=== PATIENT | male | born 1970 | race Caucasian/White ===

== ENCOUNTER 2019-12-15 08:25 | Emergency (ER) | payer SELFPAY ==
[~2019-12-15] VITALS: Ht 187 cm; Wt 70.1 kg
[~2019-12-15 08:25] MED LIST: CEPH500C PO; SULF1TAB38 PO; TRAM50TA2 PO
--- OUTSIDE RECORDS SUMMARY | 2019-12-15 08:30 | XMS REPORT ---
Author Author Marco HARDEN Organization [facility] Address [address] [place] [address] Care Team Providers Care Medical Doctor Name Role Phone MAMTA HARDEN Unavailable PROBLEMS Type Condition ICD9-CM Code [id number] Code Onset Dates Condition S tatus SNOMED Code Problem Pain in joint, upper arm 719.42 Activ e 972335666 Problem Lumbago 724.2 Active 535746508 Problem Impacted cerumen 380.4 Active 180 83018 Problem Anxiety F41.9 Active 23940231 Problem Loss of weight 783.21 Active 83419 5001 Problem Low back pain M54.5 Active 784902 007 Problem Psychosexual dysfunction with inhibited sexual excitement 302.72 Active [id number] Problem Unspecified episodic mood disorder 296.90 Active 642731318 Problem Mood disorder F39 Active 230114 05 Problem Other chronic pain G89.29 Active 8 [id number] ALLERGIES No Information ENCOUNTERS Encounter Location Date Diagnosis [address] [place], [place] [id number] 57 Feb, Mood disorder F39 and Low back pain M54.[address] [id number] December, Mood disorder F39 [address] [place], [place] [id number] 57 December, Mood disorder F39 and Weight loss R63.4 [facility] [address] [facility] [id number] [address] [place] [phone] Nov, Mood disorder F39 and Low ba ck pain M54.5 [facility] [address] [facility] [id number] [address] [place] [phone] Aug, Anxiety F41.9 [facility] [address] [facility] [id number] [address] [place] [phone] Aug, Anxiety F41.9 [address] [place], [place] [id number] 57 Jul, Anxiety F41.9 ; Low back pain M54.5 ; Other chronic pain G89.29 and Gum abscess K05.219 [facility] [address] [id number] [address] [place] [phone] 17 May, 2017 [facility] [address] [place], [place] [id number] 57 May, Bronchitis J40 and Mood disorder F39 [facility] [address] [place], [place] [id number] 57 Feb, Mood disorder F39 [facility] [address] [id number] [address] [place] [phone] Nov, [facility] [address] [id number] [address] [place] [phone] Nov, [facility] [address] [facility] [id number] [address] [place] [phone] Oct, [facility] [address] [id number] [address] [place] [phone] Oct, [facility] [address] [id number] [address] [place] [phone] Oct, [facility] [address] [id number] [address] [place] [phone] Oct, [facility] [address] [place], [place] [id number] 57 Oct, [facility] [address] [id number] [address] [place] [phone] Oct, [facility] [address] [id number] [address] [place] [phone] Sep, [facility] [address] [id number] [address] [place] [phone] Sep, [facility] [address] [id number] [address] [place] [phone] Apr, [facility] [address] [id number] [address] [place] [phone] Apr, [facility] [address] [id number] [address] [place] [phone] Mar, [facility] [address] [id number] [address] [place] [phone] Mar, [facility] [address] [id number] [address] [place] [phone] Jun, [facility] [address] [id number] [address] [place] [phone] Jun, [facility] [address] [place] [id number] 57 Apr, [facility] [address] [id number] [address] [place] [phone] December, [facility] [address] [id number] [address] [place] [phone] Nov, [facility] [address] [id number] [address] [place] [phone] Oct, [facility] [address] [id number] [address] [place] [phone] Oct, [facility] [address] [id number] [address] [place] [phone] Oct, [facility] [address] [id number] [address] [place] [phone] Oct, [facility] [address] [id number] [address] [place] [phone] Oct, IMMUNIZATIONS No Known Immunizations SOCIAL HISTORY Never Assessed REASON FOR VISIT PLAN OF CARE VITAL SIGNS Height 74 in 2014-05-01 Weight 139.8 lbs 2014-05-01 Temperature 97.1 degrees Fahrenheit 2014-05-01 Heart Rate 84 bpm 2014-05-01 Respiratory Rate 18 2014-05-01 Blood pressure systolic 128 mmHg 2014-05-01 Blood pressure diastolic 74 mmHg 2014-05-01 MEDICATIONS Unknown Medications RESULTS No Results PROCEDURES Procedure Date Ordered Result Body Site EAR IRRIGATION May 01, 2014 INSTRUCTIONS MEDICATIONS ADMINISTERED No Known Medications
--- OUTSIDE RECORDS SUMMARY | 2019-12-15 08:30 | XMS REPORT ---
Author Author Hail V[facility]ity Organization [facility] Address [address] [address] Care Team Providers Care Ethylbenzene Converter Helper Name Role Phone JESSICA, [facility] Unavailable MAMTA HARDEN Unavailable MAMTA HARDEN Unavailable MAMTA HARDEN Unavailable MAMTA HARDEN Unavailable MAMTA HARDEN Unavailable MAMTA HARDEN Unavailable MAMTA HARDEN Unavailable Migration, Doctor Unavailable Unavailable Migration, Doctor Unavailable Unavailable MAMTA HARDEN Unavailable MAMTA HARDEN Unavailable MAMTA HARDEN Unavailable MAMTA HARDEN Unavailable FINA MAMTA Unavailable FINA MAMTA Unavailable Allergies The data below is from unstructured sources Allergen Type Severity Reaction Status Last Updated No Known Drug Allergies Active 06/28/12 No Information Medications Medication Ingredient Drug Dose Dates Status Sig Sig Care Class(es) (Normalized) (Original) Provid er amitriptyli Amitriptyli Tricyclic 50 mg 11-06-19 Active take 1 amitriptylin no ne ne Antidepress 15 tablet by e 50 mg take name hydrochlori Translation ant mouth once 1 tablet (50 (no de 50 mg s: [ daily at mg) by oral phone) oral tablet amitriptyli bedtime route once (1 source.) ne 50 mg] daily at bedtime Oct, Active amoxicillin amoxicillin Penicillin- 1000 08-23-20 Active no Amoxicillin no 500 mg oral Translation class mg 17 - information 500 mg name capsule (1 s: [ Antibacteri 09-02-19 Orally 2 (no source.) Amoxicillin al 18 times a day phone) 500 mg] 2 capsules 12h Jul, Aug, 10 day(s) Active no carbamide no 3 08-27-20 Active no Debrox 6.5 % no information peroxide information drop(s 14 information 3 drop by name (1 source.) ) Otic route 2 (no times per phone) day for 5 day(s) Mar, Active diphenhydrA diphenhydrA Histamine-1 25 mg 06-14-20 Active no Benadryl 25 no MINE MINE Receptor 17 information MG Orally name tannate 25 Antagonist every 8 hrs (no mg chewable 1 capsule as phone) tablet (2 needed 8h 17 sources.) May, 2017 Active ibuprofen ibuprofen Nonsteroida 800 mg 06-07-20 Active no Ib uprofen no 800 mg oral Translation l 17 information 800 MG name tablet (2 s: [ Anti-inflam Orally Three (no sources.) Ibuprofen matory Drug times a day phone) 800 MG] as needed 1 tablet with food or milk May, 30 day(s) Active permethrin permethrin Pyrethroid 50 06-14-20 Active no E limite 5 % no 50 mg/ml Translation mg/mL 17 - information Externally name topical s: [ 06-21-20 Once a day 1 (no cream (1 Elimite 5 17 application phone) source.) %] to affected area 24h May, May, 7 day(s) Active predniSONE predniSONE no 20 mg 11-15-19 Active take 1 Predn iSONE no 20 mg oral Translation information 13 tablet by 20 mg 1 name tablet (1 s: [ mouth twice tablet by (no source.) PredniSONE daily Oral route 2 phone) 20 mg] times per day for 5 day(s) Oct, Active QUEtiapine QUEtiapine Atypical 400 mg 08-23-20 Active no Ser oquel 400 no 400 mg oral Translation Antipsychot 17 information MG Ora lly name tablet (5 s: [ ic twice a day (no sources.) Seroquel 1 tablet 12h phone) 100 mg, Jul, quetiapine 30 day(s) 200 MG Oral Active Tablet [Seroquel], Seroquel 200 MG, quetiapine 300 MG Oral Tablet [Seroquel], Seroquel 300 MG, quetiapine 400 MG Oral Tablet [Seroquel], Seroquel 400 MG] 300 mg 08-23-2017 Active no Seroquel no name inform 300 MG (no ation Orally phone) twice a day 1 tablet Jul, 30 day(s) Active 200 mg 08-23-2017 Active no Seroquel no name inform 200 MG (no ation Orally phone) twice a day 1 tablet Jul, 30 day(s) Active 100 mg 08-23-2017 Active no Seroquel no name inform 100 mg (no ation Orally phone) twice a day 1 tablet Jul, 30 day(s) Active Problems Problem Normalized Date of Normalized Normalized Provider Fac ility Classification Problem(s) Problem Problem Problem Sta tus Onset/Resoluti Duration on Other Abnormal Episodic Active [facility] nutritional; weight loss [id number] [place] [address] endocrine; and Translations: of [facility] metabolic [ - Weight [place] ([address]) disorders (20 loss R63.4, sources.) Loss of weight, Loss of weight] Mood disorders Affective Chronic Active [facility] unity (20 sources.) psychosis [id number] [place] [address] Center Translations: of [facility] [ Unspecified [place] ([address]) episodic mood disorder, - Mood disorder F39, Mood disorder, Mood disorder] Unclassified 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 [facility] (15 sources.) periodontitis, [id number] [place], [place] [address]e r localized, of [place] unspecified [place] ([address]) severity Translations: [ - Gum abscess K05.219] Anxiety Anxiety Chronic Active [facility] disorders (20 Translations: [address] [facility] sources.) [ Anxiety, - of [facility] Anxiety F41.9] [place] ([address]) Other Arthralgia of Episodic Active [facility] non-traumatic the upper arm [address] [place] [address] Center joint Translations: of [facility] disorders (15 [ Pain in [place] ([address]) sources.) joint, upper arm] Chronic Bronchitis, Episodic Active MAMTA FINA [facility] ty obstructive not specified [address] [place] [address] pulmonary as acute or of [facility] disease and chronic [place] ([address]) bronchiectasis Translations: (15 sources.) [ - Bronchitis J40] Residual Chronic pain Chronic Active [facility] codes; Translations: Migration [facility] unclassified [ Other of [place] (8 sources.) chronic pain] [place] ([address]) Other ear and Impacted Episodic Active [facility] ity sense organ cerumen [id number] [place] [address] disorders (15 Translations: of [place] sources.) [ Impacted [place] ([address]) cerumen] Spondylosis; Low back pain Episodic Active [facility] inter[facility]bral Translations: [address] [facility] disc [ - Low back of [facility] disorders; pain M54.5, [place] ([address]) other back Lumbago, problems (20 Lumbago, Low sources.) back pain] Other nervous Other chronic Chronic Active MAMTA Weinstein [facility] [address] [facility] disorders (20 Translations: of [facility] sources.) [ - Other [place] ([address]) chronic pain G89.29, Other chronic pain, Other chronic pain] Unclassified Psychosexual Chronic Active MAMTA HARDEN Com [facility]unity (15 sources.) dysfunction [address] [facility] with inhibited of [facility] sexual [place] ([address]) excitement Translations: [ Psychosexual dysfunction with inhibited sexual excitement] Other Weight Episodic Active [facility] nutritional; decreased Migration [facility] endocrine; and Translations: of [facility] metabolic [ Loss of [place] ([address]) disorders (8 weight] sources.) Procedures Procedure Normalized Procedure Procedure Result Performer Facility Date 10-29-2014 Assay of thyroid no information no name (no phone) [facility] stimulating hormone [facility] ([id number]) 10-29-2014 Blood count complete no information no name (no jose ne) [facility] auto&auto difrntl wbc [facility] (12395) 10-29-2014 Collection venous no information no name (no phone) [facility] blood venipuncture [facility] (88158) 10-29-2014 Comprehensive no information no name (no phone) [facility] (86646) 10-29-2014 Hemoglobin no information no name (no phone) [facility] glycosylated a1c [facility] (22664) 05-01-2014 Removal impacted no information no name (no phone) [facility] cerumen [facility] instrumentation unilat [place] ([address]) Immunizations The data below is from unstructured sources No Known Immunizations No Known Immunizations No Known Immunizations No Known Immunizations No Known Immunizations No Known Immunizations No Known Immunizations No Known Immunizations No Known Immunizations No Known Immunizations No Known Immunizations No Known Immunizations No Known Immunizations No Known Immunizations No Known Immunizations No Known Immunizations No Known Immunizations Results The data below is from unstructured sources No Results No Results No Results No Results No Results No Results No Results No Results No Results No Results No Results No Results No Results No Results No Results No Results No Results Vital Signs Vital Sign Value Interpretation Reference Date Time Care Prov ider Facility (Normalized) (Normalized) Range BMI (Body Mass 19.51 kg/m2 (no code) 15 - 25 kg/m2 [facility]-10-2018 [facility] 11:20-0400 65591 [facility] (64143) BMI (Body Mass 19.9 kg/m2 (no code) 15 - 25 kg/m2 12-27-2017 [facility] Index) 10:20-0400 41557 [facility] (62508) BMI (Body Mass 18.23 kg/m2 (no code) 15 - 25 kg/m2 08-23-2017 [facility] Index) 09:20-0500 92010 [facility] (20128) Body 97.1 [degF] (no code) 97.8 - 99.0 10-29-2014 [facility] Temperature [degF] 09:37-[address] [place] [address] (850[address]) Body 97.1 [degF] (no code) 97.8 - 99.0 05-01-2014 [facility] Temperature [degF] 16:47-[address] [place] [address] (95[address]) Body weight 64.41 kg (no code) kg 10-29-2014 [facility] 09:37-[address] [place] [address] (18667) Body weight 63.41 kg (no code) kg 05-01-2014 [facility] 16:47-[address] [place] [address] ([address]23) Body weight 61.78 kg (no code) kg 04-24-2014 [facility] 18:41-[address] [place] [address] ([address]) Height 187.96 cm (no code) cm 01-10-2018 MAMTA [facility] ommunity 11:20-[address] [place] [address] ([id number]) Height 187.96 cm (no code) cm 12-27-2017 MAMTA Weinstein [facility] 10:200400 99411 [facility] (92151) Height 187.96 cm (no code) cm 08-23-2017 MAMTA Weinstein [facility] 09:20-0500 50816 [facility] (32322) Height 187.96 cm (no code) cm 10-29-2014 MAMTA Weinstein [facility] 09:37-[address] [place] [address] (35946) Height 187.96 cm (no code) cm 05-01-2014 MAMTA Weinstein [facility] 16:47-[address] [place] [address] (35143) Height 187.96 cm (no code) cm 04-24-2014 MAMTA Weinstein [facility] 18:41-[address] [place] [address] ([address]) Weight 68.95 kg (no code) kg 01-10-2018 MAMTA Forbes [facility] 11:200400 [address] [place] [address] (66474) Weight 70.31 kg (no code) kg 12-27-2017 MAMTA Forbes [facility] 10:20-[address] [place] [address] (94[address]) Weight 64.41 kg (no code) kg 08-23-2017 MAMTA Forbes [facility] 09:200500 [address] [place] [address] ([address]) Interventions No Information Plan of Treatment The data below is from unstructured sourcesNo plan of care. Goals No Information Social History No Information Functional Status The data below is from unstructured sourcesNo functional status results. Mental Status No Information Encounters Encounter Normalized Encounter Encounter Diagnosis Care Provi jessa Organization Date Type 12-20-2017 [facility] Unspecified mood MAMTA HARDEN (no [facility] - [affective] disorder phone) (no phone ) 12-20-2017 - 12-20-2017 09-13-2017 [facility] Anxiety disorder, MAMTA Russell (no [facility] - unspecified phone) (no phone) 09-13-2017 - 09-13-2017 08-30-2017 [facility] Anxiety disorder, MAMTA Russell (no [facility] - unspecified phone) (no phone) 08-30-2017 - 08-30-2017 06-14-2017 [facility] no information MAMTA HARDEN ( no [facility] - phone) (no phone) 06-14-2017 - 06-14-2017 12-10-2014 [facility] no information Doctor Migrati on (no [facility] - phone) (no phone) 12-10-2014 - 12-10-2014 12-09-2014 [facility] no information Doctor Migrati on (no [facility] - phone) (no phone) 12-09-2014 - 12-09-2014 11-12-2014 [facility] no information MAMTA HARDEN ( no [facility] - phone) Doctor (no phone) 11-12-2014 [facility] (no phone) - MAMTA HARDEN (no 11-12-2014 phone) Doctor Migration (no phone) 11-05-2014 [facility] no information MAMTA HARDEN ( no [facility] - phone) Doctor (no phone) 11-05-2014 [facility] (no phone) - MAMTA HARDEN (no 11-05-2014 phone) Doctor Migration (no phone) 10-22-2014 [facility] no information MAMTA HARDEN ( no [facility] - phone) Doctor (no phone) 10-22-2014 [facility] (no phone) - MAMTA HARDEN (no 10-22-2014 phone) Doctor Migration (no phone) 05-01-2014 [facility] no information MAMTA HARDEN ( no [facility] - phone) Doctor (no phone) 05-01-2014 [facility] (no phone) - MAMTA HARDEN (no 05-01-2014 phone) Doctor Migration (no phone) 04-24-2014 [facility] no information MAMTA HARDEN ( no [facility] - phone) Doctor (no phone) 04-24-2014 Migration (no phone) - MAMTA HARDEN (no 04-24-2014 phone) Doctor Migration (no phone) 07-17-2013 [facility] no information MAMTA HARDEN ( no [facility] - phone) Doctor (no phone) 07-17-2013 Migration (no phone) - MAMTA HARDEN (no 07-17-2013 phone) Doctor Migration (no phone) 12-29-2012 [facility] no information MAMTA HARDEN ( no [facility] - phone) (no phone) 12-29-2012 - 12-29-2012 12-12-2012 [facility] no information MAMTA HARDEN ( no [facility] - phone) (no phone) 12-12-2012 - 12-12-2012 11-22-2012 [facility] no information MAMTA HARDEN ( no [facility] - phone) (no phone) 11-22-2012 - 11-22-201211-20-2012 [facility] no information Doctor Migrati on (no [facility] - phone) (no phone) 11-20-2012 - 11-20-2012 11-15-2012 [facility] no information MAMTA HARDEN ( no [facility] - phone) (no phone) 11-15-2012 - 11-15-2012 11-14-2012 [facility] no information MAMTA HARDEN ( no [facility] - phone) (no phone) 11-14-2012 - 11-14-2012 03-27-2019 [facility] Unspecified mood MAMTA HARDEN (no [facility] - Corrections [affective] disorder phone) Corre ctions (no phone) 03-27-2019 - 03-27-2019 01-10-2018 [facility] Unspecified mood MAMTA HARDEN (no [facility] - Corrections [affective] disorder phone) Corre ctions (no phone) 01-10-2018 - 01-10-2018 12-27-2017 [facility] Unspecified mood MAMTA HARDEN (no [facility]rections [affective] disorder phone) Corre ctions (no phone) 12-27-2017 - 12-27-2017 08-23-2017 [facility] Anxiety disorder, MAMTA HARDEN (no [facility] unspecified phone) Corrections (n o phone) 08-23-2017 - 08-23-2017 06-07-2017 [facility] Bronchitis, not MAMTA HARDEN (no [facility] Corrections specified as acute or phone) Garima ections (no phone) 06-07-2017 chronic - 06-07-2017 03-08-2017 [facility] Unspecified mood MAMTA HARDEN (no [facility] Corrections [affective] disorder phone) Corre ctions (no phone) 03-08-2017 - 03-08-2017 10-29-2014 [facility] no information MAMTA HARDEN (no [facility]rections phone) Doctor Corrections (no phone) 10-29-2014 Migration (no phone) - MAMTA HARDEN (no 10-29-2014 phone) Doctor Migration (no phone) 05-22-2013 [facility] no information MAMTA HARDEN (no [facility]rections phone) Corrections (no phone) 05-22-2013 - 05-22-2013 Medical Equipment No Information Payers No Information Advance Directives Directive Response Recor ded Date/Time Advance Directives No 8:32pm Resuscitation Status Full Code 03/05/14 8:32pm Discharge Instructions No hospital discharge instructions. Additional Source Comments This clinical document has been generated using GI Track software that has been certified by the Office of the National Coordinator for Health Information Technology (ONC 15.99.04.3023.Diam.31.00.0.228457) and the National Committee for Mirror Machine Feeder (NCQA, as an eMeasure certified technology). FOR RECORDS PERTAINING TO PATIENTS WHO ARE OR HAVE BEEN ENROLLED IN A CHEMICAL D EPENDENCY/SUBSTANCE ABUSE PROGRAM, SOME INFORMATION MAY BE OMITTED. This clinica l summary was aggregated from multiple sources. Caution should be exercised in using it in the provision of clinical care. This summary normalizes information from multiple sources, and as a consequence, information in this document may ma terially change the coding, format and clinical context of patient data. In jose carlos tion, data may be omitted in some cases. CLINICAL DECISIONS SHOULD BE BASED ON T HE PRIMARY CLINICAL RECORDS. [employer]. provides no warranty or guara ntee of the accuracy or completeness of information in this document.The followi ng information is based on time limited clinical information UNRECOGNIZED CONTENT PROVIDED BELOW FOR UNRECOGNIZED SECTION REASON FOR VISIT [id number]
--- OUTSIDE RECORDS SUMMARY | 2019-12-15 08:30 | XMS REPORT ---
Author Author Marco HARDEN Organization [facility] Address [address] [place] [address] Care Team Providers Care Manager Spring Name Role Phone MAMTA HARDEN Unavailable PROBLEMS Type Condition ICD9-CM Code [id number] Code Onset Dates Condition S tatus SNOMED Code Problem Pain in joint, upper arm 719.42 Activ e 176251542 Problem Lumbago 724.2 Active 732536589 Problem Impacted cerumen 380.4 Active 180 47668 Problem Anxiety F41.9 Active 03312558 Problem Loss of weight 783.21 Active 93208 5001 Problem Low back pain M54.5 Active 793728 007 Problem Psychosexual dysfunction with inhibited sexual excitement 302.72 Active 333039569828387 Problem Unspecified episodic mood disorder 296.90 Active 151756241 Problem Mood disorder F39 Active 235545 05 Problem Other chronic pain G89.29 Active 8 9133086 ALLERGIES No Information ENCOUNTERS Encounter Location Date Diagnosis [place] [place], [place] [id number] 57 Feb, Mood disorder F39 and Low back pain M54.[address] [id number] 57 December, Mood disorder F39 [place] [place], [place] [id number] 57 December, Mood disorder F39 and Weight loss R63.4 [facility] [address] [facility] [id number] [address] [place] [phone] Nov, Mood disorder F39 and Low ba ck pain M54.5 [facility] [address] [facility] [id number] [address] [place] [phone] Aug, Anxiety F[address].9 [facility] [address] [facility] [id number] [address] [place] [phone] Aug, Anxiety F41.9 [place] [address] [place], [place] [id number] 57 Jul, Anxiety F41.9 ; Low back pain M54.5 ; Other chronic pain G89.29 [address]05.219 [facility] [address] [id number] [address] [place] [phone] 17 May, 2017 [facility] [address] [place], [place] [id number] 57 May, Bronchitis J40 and Mood disorder F39 [facility] [address] [place], [place] [id number] 57 Feb, Mood disorder F39 [facility] [address] [id number] [address] [place] [phone] Nov, [facility] [address] [id number] [address] [place] [phone] Nov, [facility] [address] [facility] [id number] [address] [place] [phone] Oct, [facility] [address] [id number] [address] [place] [phone] Oct, [facility] [address] [id number] [address] [place] [phone] Oct, [facility] [address] [id number] [address] [place] [phone] Oct, [facility] [address] [place], [place] [id number] 57 Oct, [facility] [address] [id number] [address] [place] [phone] Oct, [facility] [address] [id number] [address] [place] [phone] Sep, [facility] [address] [id number] [address] [place] [phone] Sep, [facility] [address] [id number] [address] [place] [phone] Apr, [facility] [address] [id number] [address] [place] [phone] Apr, [facility] [address] [id number] [address] [place] [phone] Mar, [facility] [address] [id number] [address] [place] [phone] Mar, [facility] [address] [id number] [address] [place] [phone] Jun, [facility] [address] [id number] [address] [place] [phone] Jun, [facility] [address] [place] [id number] 57 Apr, [facility] [address] [id number] [address] [place] [phone] December, [facility] [address] [id number] [address] [place] [phone] Nov, [facility] [address] [id number] [address] [place] [phone] Oct, [facility] [address] [id number] [address] [place] [phone] Oct, [facility] [address] [id number] [address] [place] [phone] Oct, [facility] [address] [id number] [address] [place] [phone] Oct, [facility] [address] [id number] [address] [place] [phone] Oct, IMMUNIZATIONS No Known Immunizations SOCIAL HISTORY Never Assessed REASON FOR VISIT PLAN OF CARE VITAL SIGNS Height 74 in 2014-04-24 Weight 136.2 lbs 2014-04-24 Heart Rate 84 bpm 2014-04-24 Respiratory Rate 16 2014-04-24 Blood pressure systolic 134 mmHg 2014-04-24 Blood pressure diastolic 88 mmHg 2014-04-24 MEDICATIONS Unknown Medications RESULTS No Results PROCEDURES No Known procedures INSTRUCTIONS MEDICATIONS ADMINISTERED No Known Medications
--- OUTSIDE RECORDS SUMMARY | 2019-12-15 08:30 | XMS REPORT | Encounter Summary ---
Author Author [facility] Address Unknown Phone Unavailable Care Team Providers Care Steel Pourer Name Role Phone PCP Unavailable Encounter Details Care Team Description Date Type Department Braden Nunn MD [address] [place] [address] [phone] Emergency, PhysicianMD Other acute pain 03/05/2010 [facility] al Encounter [address] [place] [address] Social History Date Tobacco Use Types Packs/Day Years Used Never Assessed Sex Assigned at Date Recorded Not on file Industry Job Start Date Occupation Not on file Not on file Not on file Travel End Travel History Travel Start No recent travel history available. documented as of this encounter Plan of Treatment Not on filedocumented as of this encounter Visit Diagnoses Diagnosis Other acute pain documented in this encounter
--- OUTSIDE RECORDS SUMMARY | 2019-12-15 08:30 | XMS REPORT | Clinical Summary ---
Author Author [facility] Organization [facility] Address Unknown Phone Unavailable Care Team Providers Care Process Artist Name Role Phone PCP Unavailable Allergies Not on File Medications Not on file Active Problems Not on file Social History Date Tobacco Use Types Packs/Day Years Used Never Assessed Sex Assigned at Date Recorded Not on file Industry Job Start Date Occupation Not on file Not on file Not on file Travel End Travel History Travel Start No recent travel history available. Last Filed Vital Signs Not on file Plan of Treatment Not on file Results Not on filefrom Last 3 Months
--- OUTSIDE RECORDS SUMMARY | 2019-12-15 08:30 | XMS REPORT ---
Author Author Marco HARDEN Organization [facility] Address [address] [place] [address] Care Team Providers Care Senior Media Planner Name Role Phone MAMTA HARDEN Unavailable PROBLEMS Type Condition ICD9-CM Code [id number] Code Onset Dates Condition S tatus SNOMED Code Problem Loss of weight 783.21 Active 76545 5001 Problem Pain in joint, upper arm 719.42 Activ e 059358788 Problem Lumbago 724.2 Active 619096840 Problem Anxiety F41.9 Active 30806617 Problem Other chronic pain G89.29 Active 8 3695398 Problem Impacted cerumen 380.4 Active 180 71150 Problem Psychosexual dysfunction with inhibited sexual excitement 302.72 Active 605871839698136 Problem Unspecified episodic mood disorder 296.90 Active 518805967 Problem Mood disorder F39 Active 806585 05 ALLERGIES No Information ENCOUNTERS Encounter Location Date Diagnosis [address] [place], [place] [id number] 57 December, Mood disorder F39 [address] [place], [place] [id number] 57 December, Mood disorder F39 and Weight loss R63.4 [place] [address] [facility] [id number] [address] [place] [place] [phone] Nov, Mood disorder F39 and Low ba ck pain M54.5 [place] [address] [facility] [id number] [address] [place] [phone] Aug, Anxiety F41.9 [place] [address] [facility] [id number] [address] [place] [address] Aug, Anxiety F41.9 [address] [place], [place] [id number] 57 Jul, Anxiety F41.9 ; Low back pain M54.5 ; Other chronic pain G89.29 and Gum abscess K05.219 [place] [address] [id number] [address] [place] [phone] 17 May, 2017 [facility] [address] [place] [id number] 57 10 May, 2017 Bronchitis J40 and Mood disorder F39 [facility] [address] [place] [id number] 57 11 Feb, 2017 Mood disorder F39 [facility] [address] [id number] [address] [place] [phone] 14 Nov, 2014 [facility] [address] [id number] [address] [place] [phone] Nov, [facility] [address] [id number] [address] [place] [phone] Oct, [facility] [address] [id number] [address] [place] [phone] Oct, [facility] [address] [id number] [address] [place] [phone] Oct, [facility] [address] [id number] [address] [place] [phone] Oct, [facility] [address] [place] [id number] 57 Oct, [facility] [address] [id number] [address] [place] [phone] Oct, [facility] [address] [id number] [address] [place] [phone] Sep, [facility] [address] [id number] [address] [place] [phone] Sep, [facility] [address] [id number] [address] [place] [phone] Apr, [facility] [address] [id number] [address] [place] [phone] Apr, [facility] [address] [id number] [address] [place] [phone] Mar, [facility] [address] [id number] [address] [place] [phone] Mar, [facility] [address] [id number] [address] [place] [phone] Jun, [facility] [address] [id number] [address] [place] [phone] Jun, [facility] [address] [place] [id number] 57 Apr, [facility] [address] [id number] [address] [place] [phone] December, [facility] [address] [id number] [address] [place] [phone] Nov, [facility] [address] [id number] [address] [place] [phone] Oct, [facility] [address] [facility] [id number] [address] [place] [phone] Oct, [facility] [address] [id number] [address] [place] [phone] Oct, [facility] [address] [id number] [address] [place] [phone] Oct, [facility] [address] [facility] [id number] [address] [place] [phone] Oct, IMMUNIZATIONS No Known Immunizations SOCIAL HISTORY Never Assessed REASON FOR VISIT PLAN OF CARE VITAL SIGNS MEDICATIONS Unknown Medications RESULTS No Results PROCEDURES No Known procedures INSTRUCTIONS MEDICATIONS ADMINISTERED No Known Medications
--- OUTSIDE RECORDS SUMMARY | 2019-12-15 08:30 | XMS REPORT | Clinical Summary ---
Author Author [facility] Organization [facility] Address Unknown Phone Unavailable Care Team Providers Care Wool Buyer Name Role Phone Self, Referral PCP Unavailable Winter Perez RN Unavailable Unavailable Source Comments Some departments are not documenting in the electronic medical record. If you d o not see the information that you expected, contact Release of Information in [facility] Information Management department at [phone] for further assistan ce in locating additional records.[facility] Allergies No Known Allergies Medications End Date Status Medication Sig Dispensed Refills Start Date Active amoxicillin (AMOXIL) 500 Take 1 Cap by 30 Cap 0 201 mg PO capsule mouth Three 0 Times Daily. Active naproxen (NAPROSYN) 500 Take 1 Tab by 30 Tab 0 201 mg PO tablet mouth Twice 0 Daily With Meals. Active Problems Not on file Social History Date Tobacco Use Types Packs/Day Years Used Current Every Day Smoker Drinks/Week oz/Week Comments Alcohol Use Yes Sex Assigned at Date Recorded Not on file Industry Job Start Date Occupation Not on file Not on file Not on file Travel End Travel History Travel Start No recent travel history available. Last Filed Vital Signs Reading Time Taken Comments Vital Sign 108/60 04/26/2010 1:49 PM CDT Blood Pressure 119 04/26/2010 1:49 PM CDT Pulse 36.4 C (97.5 F) 04/26/2010 1:49 PM CDT Temperature - - Respiratory Rate 98% 04/26/2010 1:49 PM CDT Oxygen Saturation - - Inhaled Oxygen Concentration - - Weight - - Height - - Body Mass Index Plan of Treatment Health Maintenance Due Date Last Done Comments DTAP/TDAP VACCINES (1 - 1982 Tdap) HIV SCREENING 1986 HEPATITIS C SCREENING 1989 PHYSICAL (COMPREHENSIVE) 1989 EXAM INFLUENZA VACCINE 03/29/2020 Results Not on filefrom Last 3 Months
--- OUTSIDE RECORDS SUMMARY | 2019-12-15 08:31 | XMS REPORT ---
Author Author Marco Vaughan Doctor Organization [facility] Address Unknown Phone Unavailable Care Team Providers Care Inspector Shells Name Role Phone Migration, Doctor Unavailable Unavailable PROBLEMS Type Condition ICD9-CM Code [id number] Code Onset Dates Condition S tatus SNOMED Code Problem Loss of weight 783.21 Active 49531 5001 Problem Pain in joint, upper arm 719.42 Activ e 875625638 Problem Lumbago 724.2 Active 337228796 Problem Anxiety F41.9 Active 80486410 Problem Other chronic pain G89.29 Active 8 2583021 Problem Impacted cerumen 380.4 Active 180 59330 Problem Psychosexual dysfunction with inhibited sexual excitement 302.72 Active 370631796884495 Problem Unspecified episodic mood disorder 296.90 Active 098111750 Problem Mood disorder F39 Active 751068 05 ALLERGIES No Information ENCOUNTERS Encounter Location Date Diagnosis [address] [id number] December, Mood disorder F39 [address] [id number] 57 December, Mood disorder F39 and Weight loss R63.4 [place] [address] [facility] [id number] [address] [place] [phone] Nov, Mood disorder F39 and Low ba ck pain M54.5 [facility] [address] [facility] [id number] [address] [place] [phone] Aug, Anxiety F41.9 [facility] [address] [facility] [id number] [address] [place] [phone] Aug, Anxiety F41.[address] [id number] 57 Jul, Anxiety F41.9 ; Low back pain M54.5 ; Other chronic pain G89.29 and Gum abscess K05.219 [facility] [address] [facility] [id number] [address] [place] [phone] May, [place] [address] [place] [id number] 57 10 May, 2017 Bronchitis J40 and Mood disorder F39 [facility] [address], [place] [id number] 57 11 Feb, 2017 Mood disorder F39 [facility] [address] [id number] [address] [place] [phone] 14 Nov, 2014 [facility] [address] [id number] [address] [place] [phone] Nov, [facility] [address] [id number] [address] [place] [phone] Oct, [facility] [address] [id number] [address] [place] [phone] Oct, [facility] [address] [id number] [address] [place] [phone] Oct, [facility] [address] [id number] [address] [place] [address], [place] [address] Oct, [facility] [address] [place] [id number] 57 Oct, [facility] [address] [id number] [address] [place] [phone] Oct, [facility] [address] [id number] [address] [place] [phone] Sep, [facility] [address] [id number] [address] [place] [phone] Sep, [facility] [address] [id number] [address] [place] [phone] Apr, [facility] [address] [id number] [address] [place] [phone] Apr, [facility] [address] [id number] [address] [place] [phone] Mar, [facility] [address] [id number] [address] [place] [address], [place] [phone] Mar, [facility] [address] [id number] [address] [place] [phone] Jun, [facility] [address] [facility] [id number] [address] [place] [phone] Jun, [facility] [address] [id number] 57 Apr, [facility] [address] [facility] [id number] [address] [place] [phone] December, [facility] [address] [facility] [id number] [address] [place] [phone] Nov, [facility] [address] [facility] [id number] [address] [place] [phone] Oct, [facility] [address] [facility] [id number] [address] [place] [phone] Oct, [facility] [address] [facility] [id number] [address] [place] [phone] Oct, [facility] [address] [facility] [id number] [address] [place] [phone] Oct, [facility] [address] [facility] [id number] [address] [place] [phone] Oct, IMMUNIZATIONS No Known Immunizations SOCIAL HISTORY Never Assessed REASON FOR VISIT EMR[facility] PLAN OF CARE VITAL SIGNS MEDICATIONS Unknown Medications RESULTS No Results PROCEDURES No Known procedures INSTRUCTIONS MEDICATIONS ADMINISTERED No Known Medications
--- OUTSIDE RECORDS SUMMARY | 2019-12-15 08:31 | XMS REPORT ---
Author Author Marco HARDEN Organization [facility] Address [address] [place] [address] Care Team Providers Care Rail Project Engineer Name Role Phone MAMTA HARDEN Unavailable PROBLEMS Type Condition ICD9-CM Code UZZ70-CT Code Onset Dates Condition S tatus SNOMED Code Problem Loss of weight 783.21 Active 52836 5001 Problem Lumbago 724.2 Active 853486911 Problem Pain in joint, upper arm 719.42 Activ e 209565664 Problem Other chronic pain G89.29 Active 8 8511252 Problem Anxiety F41.9 Active 62522683 Problem Psychosexual dysfunction with inhibited sexual excitement 302.72 Active 098018048217879 Problem Impacted cerumen 380.4 Active 180 21701 Problem Mood disorder F39 Active 790511 05 Problem Unspecified episodic mood disorder 296.90 Active [id number] ALLERGIES No Information ENCOUNTERS Encounter Location Date Diagnosis [place] [place], [place] [id number] 57 December, Mood disorder F39 [place] [address] [place], [place] [id number] 57 December, Mood disorder F39 and Weight loss R63.4 [place] [address] [facility] [id number] [address] [place] [address] Nov, Mood disorder F39 and Low ba ck pain M54.5 [place] [address] [facility] [id number] [address] [place] [address] Aug, Anxiety F41.9 [place] [address] [facility] [id number] [address] [place] [address] Aug, Anxiety F41.9 [place] [address] [place] [id number] 57 Jul, Anxiety F41.9 ; Low back pain M54.5 ; Other chronic pain G89.29 and Gum abscess K05.219 [place] [address] [id number] [address] [place] [address] 17 May, 2017 [facility] [address] [place] [id number] 57 10 May, 2017 Bronchitis J40 and Mood disorder F39 [facility] [address] [place] [id number] 57 11 Feb, 2017 Mood disorder F39 [facility] [address] [id number] [address] [place] [address] 14 Nov, 2014 [facility] [address] [id number] [address] [place] [address] Nov, [facility] [address] [id number] [address] [place] [phone] Oct, [facility] [address] [id number] [address] [place] [address] Oct, [facility] [address] [id number] [address] [place] [address] Oct, [facility] [address] [id number] [address] [place] [address] Oct, [facility] [address] [place] [id number] 57 Oct, [facility] [address] [id number] [address] [place] [address] Oct, [facility] [address] [id number] [address] [place] [address] Sep, [facility] [address] [id number] [address] [place] [phone] Sep, [facility] [address] [id number] [address] [place] [address] Apr, [facility] [address] [id number] [address] [place] [phone] Apr, [facility] [address] [id number] [address] [place] [phone] Mar, [facility] [address] [id number] [address] [place] [phone] Mar, [facility] [address] [id number] [address] [place] [address] Jun, [facility] [address] [id number] [address] [place] [phone] Jun, [facility] [address] [place] [id number] 57 Apr, [facility] [address] [id number] [address] [place] [address] December, [facility] [address] [id number] [address] [place] [address] Nov, [facility] [address] [id number] [address] [place] [address] Oct, [facility] [address] [id number] [address] [place] [address] Oct, [facility] [address] [id number] [address] [place] [address] Oct, [facility] [address] [id number] [address] [place] [address] Oct, [facility] [address] [id number] [address] [place] [address] Oct, IMMUNIZATIONS No Known Immunizations SOCIAL HISTORY Never Assessed REASON FOR VISIT half-way PLAN OF CARE VITAL SIGNS Height 74 in 2017-08-23 Weight 142 lbs 2017-08-23 Heart Rate 80 bpm 2017-08-23 Respiratory Rate 16 2017-08-23 BMI 18.23 kg/m2 2017-08-23 Blood pressure systolic 100 mmHg 2017-08-23 Blood pressure diastolic 66 mmHg 2017-08-23 MEDICATIONS Medication Instructions Dosage Frequency Start Date End Date Duration S tatus Seroquel 100 mg Orally twice a day 1 tablet Jul, 30 day(s) Active Amoxicillin 500 mg Orally 2 times a day 2 capsules 12h Jul, 2 017 5 Aug, 2017 10 day(s) Active Ibuprofen 800 MG Orally Three times a day as needed 1 tablet wit h food or milk May, 30 day(s) Active RESULTS No Results PROCEDURES No Known procedures INSTRUCTIONS MEDICATIONS ADMINISTERED No Known Medications
--- OUTSIDE RECORDS SUMMARY | 2019-12-15 08:31 | XMS REPORT ---
Author Author Marco Vaughan Doctor Organization [facility] Address Unknown Phone Unavailable Care Team Providers Care Unix Engineer Name Role Phone Migration, Doctor Unavailable Unavailable PROBLEMS Type Condition ICD9-CM Code SYK45-DX Code Onset Dates Condition S tatus SNOMED Code Problem Loss of weight 783.21 Active 15114 5001 Problem Pain in joint, upper arm 719.42 Activ e 734777569 Problem Lumbago 724.2 Active 191098373 Problem Anxiety F41.9 Active 48012875 Problem Other chronic pain G89.29 Active 8 3756204 Problem Impacted cerumen 380.4 Active 180 33919 Problem Psychosexual dysfunction with inhibited sexual excitement 302.72 Active 307238945044568 Problem Unspecified episodic mood disorder 296.90 Active 711130432 Problem Mood disorder F39 Active 491355 05 ALLERGIES No Information ENCOUNTERS Encounter Location Date Diagnosis [address] [id number] 57 December, Mood disorder F39 [address] [id number] 57 December, Mood disorder F39 and Weight loss R63.4 [place] [address] [facility] [id number] [address] [place] [address] Nov, Mood disorder F39 and Low ba ck pain M54.5 [facility] [address] [facility] [id number] [address] [place] [phone] Aug, Anxiety F41.9 [facility] [address] [facility] [id number] [address] [place] [address] Aug, Anxiety F41.[address] [id number] 57 Jul, Anxiety F41.9 ; Low back pain M54.5 ; Other chronic pain G89.29 and Gum abscess K05.219 [facility] [address] [facility] [id number] [address] [place] [address] May, [place] [address] [place] [id number] 57 10 May, 2017 Bronchitis J40 and Mood disorder F39 [facility] [address] [place], [place] [id number] 57 11 Feb, 2017 Mood disorder F39 [facility] [address] [id number] [address] [place] [phone] 14 Nov, 2014 [facility] [address] [id number] [address] [place] [phone] Nov, [facility] [address] [id number] [address] [place] [phone] Oct, [facility] [address] [id number] [address] [place] [phone] Oct, [facility] [address] [id number] [address] [place] [phone] Oct, [facility] [address] [id number] [address] [place] [address], [place] [address] Oct, [facility] [address] [place] [id number] 57 Oct, [facility] [address] [id number] [address] [place] [phone] Oct, [facility] [address] [id number] [address] [place] [phone] Sep, [facility] [address] [id number] [address] [place] [phone] Sep, [facility] [address] [id number] [address] [place] [phone] Apr, [facility] [address] [id number] [address] [place] [phone] Apr, [facility] [address] [id number] [address] [place] [phone] Mar, [facility] [address] [id number] [address] [place] [address], [place] [address] Mar, [facility] [address] [id number] [address] [place] [phone] Jun, [facility] [address] [facility] [id number] [address] [place] [phone] Jun, [facility] [address] [id number] 57 Apr, [facility] [address] [facility] [id number] [address] [place] [phone] December, [facility] [address] [facility] [id number] [address] [place] [phone] Nov, [facility] [address] [facility] [id number] [address] [place] [phone] Oct, [facility] [address] [facility] [id number] [address] [place] [phone] Oct, [facility] [address] [facility] [id number] [address] [place] [phone] Oct, [facility] [address] [facility] [id number] [address] [place] [phone] Oct, [facility] [address] [facility] [id number] [address] [place] [phone] Oct, IMMUNIZATIONS No Known Immunizations SOCIAL HISTORY Never Assessed REASON FOR VISIT [facility] PLAN OF CARE VITAL SIGNS MEDICATIONS Unknown Medications RESULTS No Results PROCEDURES No Known procedures INSTRUCTIONS MEDICATIONS ADMINISTERED No Known Medications
--- OUTSIDE RECORDS SUMMARY | 2019-12-15 08:31 | XMS REPORT ---
Author Author Marco HARDEN Organization [facility] Address [address] [place] [address] Care Team Providers Care Telephone Interviewer Name Role Phone MAMTA HARDEN Unavailable PROBLEMS Type Condition ICD9-CM Code IZT34-BE Code Onset Dates Condition S tatus SNOMED Code Problem Loss of weight 783.21 Active 73143 5001 Problem Lumbago 724.2 Active 431281151 Problem Pain in joint, upper arm 719.42 Activ e 749253653 Problem Other chronic pain G89.29 Active 8 7398969 Problem Anxiety F41.9 Active 91159466 Problem Psychosexual dysfunction with inhibited sexual excitement 302.72 Active 089740939994089 Problem Impacted cerumen 380.4 Active 180 11365 Problem Mood disorder F39 Active 286764 05 Problem Unspecified episodic mood disorder 296.90 Active [id number] ALLERGIES No Information ENCOUNTERS Encounter Location Date Diagnosis [place] [address] [place], [place] [id number] 57 December, Mood disorder F39 [place] [address] [place], [place] [id number] 57 December, Mood disorder F39 and Weight loss R63.4 [place] [address] [facility] [id number] [address] [place] [phone] Nov, Mood disorder F39 and Low ba ck pain M54.5 [place] [address] [facility] [id number] [address] [place] [phone] Aug, Anxiety F41.9 [place] [address] [facility] [id number] [address] [place] [phone] Aug, Anxiety F41.9 [place] [address] [place], [place] [id number] 57 Jul, Anxiety F41.9 ; Low back pain M54.5 ; Other chronic pain G89.29 and Gum abscess K05.219 [place] [address] [id number] [address] [place] [phone] 17 May, 2017 [facility] [address] [place] [id number] 57 10 May, 2017 Bronchitis J40 and Mood disorder F39 [facility] [address] [id number] 57 11 Feb, 2017 Mood disorder F39 [facility] [address] [id number] [address] [place] [phone] 14 Nov, 2014 [facility] [address] [id number] [address] [place] [phone] Nov, [facility] [address] [id number] [address] [place] [phone] Oct, [facility] [address] [id number] [address] [place] [phone] Oct, [facility] [address] [id number] [address] [place] [phone] Oct, [facility] [address] [id number] [address] [place] [phone] Oct, [facility] [address] [id number] 57 Oct, [facility] [address] [id number] [address] [place] [phone] Oct, [facility] [address] [id number] [address] [place] [phone] Sep, [facility] [address] [id number] [address] [place] [phone] Sep, [facility] [address] [id number] [address] [place] [phone] Apr, [facility] [address] [id number] [address] [place] [phone] Apr, [facility] [address] [id number] [address] [place] [phone] Mar, [facility] [address] [id number] [address] [place] [phone] Mar, [facility] [address] [id number] [address] [place] [phone] Jun, [facility] [address] [id number] [address] [place] [phone] Jun, [facility] [address] [place] [id number] 57 Apr, [facility] [address] [id number] [address] [place] [phone] December, [facility] [address] [id number] [address] [place] [phone] Nov, [facility] [address] [id number] [address] [place] [phone] Oct, [facility] [address] [id number] [address] [place] [phone] Oct, [facility] [address] [id number] [address] [place] [phone] Oct, [facility] [address] [id number] [address] [place] [phone] Oct, [facility] [address] [id number] [address] [place] [phone] Oct, IMMUNIZATIONS No Known Immunizations SOCIAL HISTORY Never Assessed REASON FOR VISIT custodial rx PLAN OF CARE VITAL SIGNS MEDICATIONS Medication Instructions Dosage Frequency Start Date End Date Duration S tatus Seroquel 200 MG Orally twice a day 1 tablet 12h Jul, 30 day(s) Active RESULTS No Results PROCEDURES No Known procedures INSTRUCTIONS MEDICATIONS ADMINISTERED No Known Medications
--- OUTSIDE RECORDS SUMMARY | 2019-12-15 08:31 | XMS REPORT ---
Author Author Marco HARDEN Organization [facility] Address [address] [place] [address] Care Team Providers Care Pipe [address] Service Name Role Phone MAMTA HARDEN Unavailable PROBLEMS Type Condition ICD9-CM Code AWW98-ZC Code Onset Dates Condition S tatus SNOMED Code Problem Loss of weight 783.21 Active 98847 5001 Problem Pain in joint, upper arm 719.42 Activ e 807686648 Problem Lumbago 724.2 Active 685552352 Problem Anxiety F41.9 Active 74227603 Problem Other chronic pain G89.29 Active 8 4661807 Problem Impacted cerumen 380.4 Active 180 32121 Problem Psychosexual dysfunction with inhibited sexual excitement 302.72 Active 798983767520773 Problem Unspecified episodic mood disorder 296.90 Active 949355276 Problem Mood disorder F39 Active 843250 05 ALLERGIES No Information ENCOUNTERS Encounter Location Date Diagnosis [place] [address] [place], [place] [id number] 57 December, Mood disorder F39 [place] [place], [place] [id number] 57 December, Mood disorder F39 and Weight loss R63.4 [place] [address] [facility] [id number] [address] [place] [phone] Nov, Mood disorder F39 and Low ba ck pain M54.5 [place] [address] [facility] [id number] [address] [place] [address] Aug, Anxiety F41.9 [place] [address] [facility] [id number] [address] [place] [phone] Aug, Anxiety F41.9 [place] [address] [place], [place] [id number] 57 Jul, Anxiety F41.9 ; Low back pain M54.5 ; Other chronic pain G89.29 and Gum abscess K05.219 [place] [address] [id number] [address] [place] [address] 17 May, 2017 [facility] [address] [id number] 57 10 May, 2017 Bronchitis J40 and Mood disorder F39 [facility] [address] [id number] 57 11 Feb, 2017 Mood disorder F39 [facility] [address] [id number] [address] [place] [phone] 14 Nov, 2014 [facility] [address] [id number] [address] [place] [phone] Nov, [facility] [address] [id number] [address] [place] [phone] Oct, [facility] [address] [id number] [address] [place] [phone] Oct, [facility] [address] [id number] [address] [place] [phone] Oct, [facility] [address] [id number] [address] [place] [phone] Oct, [facility] [address] [place] [id number] 57 Oct, [facility] [address] [id number] [address] [place] [phone] Oct, [facility] [address] [id number] [address] [place] [phone] Sep, [facility] [address] [id number] [address] [place] [phone] Sep, [facility] [address] [id number] [address] [place] [phone] Apr, [facility] [address] [id number] [address] [place] [phone] Apr, [facility] [address] [id number] [address] [place] [phone] Mar, [facility] [address] [id number] [address] [place] [phone] Mar, [facility] [address] [id number] [address] [place] [phone] Jun, [facility] [address] [id number] [address] [place] [phone] Jun, [facility] [address] [place] [place] [id number] 57 Apr, [facility] [address] [id number] [address] [place] [phone] December, [facility] [address] [id number] [address] [place] [phone] Nov, [facility] [address] [id number] [address] [place] [phone] Oct, [facility] [address] [facility] [id number] [address] [place] [phone] Oct, [facility] [address] [id number] [address] [place] [phone] Oct, [facility] [address] [id number] [address] [place] [phone] Oct, [facility] [address] [facility] [id number] [address] [place] [phone] Oct, IMMUNIZATIONS No Known Immunizations SOCIAL HISTORY Never Assessed REASON FOR VISIT PLAN OF CARE VITAL SIGNS MEDICATIONS Unknown Medications RESULTS No Results PROCEDURES No Known procedures INSTRUCTIONS MEDICATIONS ADMINISTERED No Known Medications
--- OUTSIDE RECORDS SUMMARY | 2019-12-15 08:31 | XMS REPORT ---
Author Author Marco HARDEN Organization [facility] Address [address] [place] [address] Care Team Providers Care Camp Advisor Name Role Phone MAMTA HARDEN Unavailable PROBLEMS Type Condition ICD9-CM Code [id number] Code Onset Dates Condition S tatus SNOMED Code Problem Loss of weight 783.21 Active 69472 5001 Problem Pain in joint, upper arm 719.42 Activ e 095933086 Problem Lumbago 724.2 Active 558629165 Problem Anxiety F41.9 Active 28263596 Problem Other chronic pain G89.29 Active 8 5812994 Problem Impacted cerumen 380.4 Active 180 41662 Problem Psychosexual dysfunction with inhibited sexual excitement 302.72 Active 381214570776302 Problem Unspecified episodic mood disorder 296.90 Active 787377076 Problem Mood disorder F39 Active 044091 05 ALLERGIES No Information ENCOUNTERS Encounter Location Date Diagnosis [place] [address] [place], [place] [id number] 57 December, Mood disorder F39 [place] [address] [place], [place] [id number] 57 December, Mood disorder F39 and Weight loss R63.4 [place] [address] [facility] [id number] [address] [place] [phone] Nov, Mood disorder F39 and Low ba ck pain M54.5 [place] [address] [facility] [id number] [address] [place] [phone] Aug, Anxiety F41.9 [place] [address] [facility] [id number] [address] [place] [phone] Aug, Anxiety F41.9 [place] [address] [place], [place] [id number] 57 Jul, Anxiety F41.9 ; Low back pain M54.5 ; Other chronic pain G89.29 and Gum abscess K05.219 [place] [address] [id number] [address] [place] [phone] 17 May, 2017 [facility] [address] [place] [id number] 57 10 May, 2017 Bronchitis J40 and Mood disorder F39 [facility] [address] [place] [id number] 57 11 Feb, 2017 [facility] disorder F39 [facility] [address] [id number] [address] [place] [phone] 14 Nov, 2014 [facility] [address] [id number] [address] [place] [phone] Nov, [facility] [address] [id number] [address] [place] [phone] Oct, [facility] [address] [id number] [address] [place] [phone] Oct, [facility] [address] [id number] [address] [place] [phone] Oct, [facility] [address] [id number] [address] [place] [phone] Oct, [facility] [address] [id number] 57 Oct, [facility] [address] [id number] [address] [place] [phone] Oct, [facility] [address] [id number] [address] [place] [phone] Sep, [facility] [address] [id number] [address] [place] [phone] Sep, [facility] [address] [id number] [address] [place] [phone] Apr, [facility] [address] [id number] [address] [place] [phone] Apr, [facility] [address] [id number] [address] [place] [phone] Mar, [facility] [address] [id number] [address] [place] [phone] Mar, [facility] [address] [id number] [address] [place] [phone] Jun, [facility] [address] [id number] [address] [place] [phone] Jun, [facility] [address] [place] [id number] 57 Apr, [facility] [address] [id number] [address] [place] [phone] December, [facility] [address] [id number] [address] [place] [phone] Nov, [facility] [address] [id number] [address] [place] [phone] Oct, [facility] [address] [id number] [address] [place] [phone] Oct, [facility] [address] [id number] [address] [place] [phone] Oct, [facility] [address] [id number] [address] [place] [phone] Oct, [facility] [address] [id number] [address] [place] [phone] Oct, IMMUNIZATIONS No Known Immunizations SOCIAL HISTORY Never Assessed REASON FOR VISIT PLAN OF CARE VITAL SIGNS Height 74 in 2014-10-29 Weight 142 lbs 2014-10-29 Temperature 97.1 degrees Fahrenheit 2014-10-29 Heart Rate 70 bpm 2014-10-29 Respiratory Rate 16 2014-10-29 Blood pressure systolic 122 mmHg 2014-10-29 Blood pressure diastolic 78 mmHg 2014-10-29 MEDICATIONS Unknown Medications RESULTS No Results PROCEDURES Procedure Date Ordered Result Body Site COMPLETE CBC W/AUTO DIFF WBC October 29, 2014 ASSAY THYROID STIM HORMONE October 29, 2014 GLYCATED HEMOGLOBIN TEST October 29, 2014 COMPREHEN METABOLIC PANEL October 29, 2014 VENIPUNCT, ROUTINE* October 29, 2014 INSTRUCTIONS MEDICATIONS ADMINISTERED No Known Medications
--- OUTSIDE RECORDS SUMMARY | 2019-12-15 08:31 | XMS REPORT ---
Author Author Marco Vaughan Doctor Organization [facility] Address Unknown Phone Unavailable Care Team Providers Care Supervisor Trust Accounts Name Role Phone Migration, Doctor Unavailable Unavailable PROBLEMS Type Condition ICD9-CM Code [id number] Code Onset Dates Condition S tatus SNOMED Code Problem Loss of weight 783.21 Active 34697 5001 Problem Pain in joint, upper arm 719.42 Activ e 569111326 Problem Lumbago 724.2 Active 748929724 Problem Anxiety F41.9 Active 43387147 Problem Other chronic pain G89.29 Active 8 7958902 Problem Impacted cerumen 380.4 Active 180 68124 Problem Psychosexual dysfunction with inhibited sexual excitement 302.72 Active 322372504870735 Problem Unspecified episodic mood disorder 296.90 Active 981657737 Problem Mood disorder F39 Active 182874 05 ALLERGIES No Information ENCOUNTERS Encounter Location Date Diagnosis [address] [id number] December, Mood disorder F39 [address] [id number] 57 December, Mood disorder F39 and Weight loss R63.4 [place] [address] [facility] [id number] [address] [place] [phone] Nov, Mood disorder F39 and Low ba ck pain M54.5 [facility] [address] [facility] [id number] [address] [place] [phone] Aug, Anxiety F41.9 [facility] [address] [facility] [id number] [address] [place] [phone] Aug, Anxiety F41.[address] [id number] 57 Jul, Anxiety F41.9 ; Low back pain M54.5 ; Other chronic pain G89.29 and Gum abscess K05.219 [facility] [address] [facility] [id number] [address] [place] [phone] May, [place] [address] [place] [place] [id number] 57 10 May, 2017 Bronchitis J40 and Mood disorder F39 [facility] [address] [place], [place] [id number] 57 11 Feb, 2017 Mood disorder F39 [facility] [address] [id number] [address] [place] [phone] 14 Nov, 2014 [facility] [address] [id number] [address] [place] [phone] Nov, [facility] [address] [id number] [address] [place] [phone] Oct, [facility] [address] [id number] [address] [place] [phone] Oct, [facility] [address] [id number] [address] [place] [phone] Oct, [facility] [address] [id number] [address] [place] [address], [place] [address] Oct, [facility] [address] [place] [id number] 57 Oct, [facility] [address] [id number] [address] [place] [phone] Oct, [facility] [address] [id number] [address] [place] [phone] Sep, [facility] [address] [id number] [address] [place] [phone] Sep, [facility] [address] [id number] [address] [place] [phone] Apr, [facility] [address] [id number] [address] [place] [phone] Apr, [facility] [address] [id number] [address] [place] [phone] Mar, [facility] [address] [id number] [address] [place] [address], [place] [address] Mar, [facility] [address] [id number] [address] [place] [phone] Jun, [facility] [address] [id number] [address] [place] [phone] Jun, [facility] [address] [place] [id number] 57 Apr, [facility] [address] [id number] [address] [place] [phone] December, [facility] [address] [id number] [address] [place] [phone] Nov, [facility] [address] [id number] [address] [place] [phone] Oct, [facility] [address] [id number] [address] [place] [phone] Oct, [facility] [address] [id number] [address] [place] [phone] Oct, [facility] [address] [id number] [address] [place] [phone] Oct, [facility] [address] [id number] [address] [place] [phone] Oct, IMMUNIZATIONS No Known Immunizations SOCIAL HISTORY Never Assessed REASON FOR VISIT [facility] PLAN OF CARE VITAL SIGNS MEDICATIONS Medication Instructions Dosage Frequency Start Date End Date Duration S tatus amitriptyline 50 mg take 1 tablet (50 mg) by ora l route once daily at bedtime Oct, Active PredniSONE 20 mg 1 tablet by Oral route 2 times per da y for 5 day(s) Oct, Active Debrox 6.5 % 3 drop by Otic route 2 times per day for 5 da y(s) Mar, Active RESULTS No Results PROCEDURES No Known procedures INSTRUCTIONS MEDICATIONS ADMINISTERED No Known Medications
--- OUTSIDE RECORDS SUMMARY | 2019-12-15 08:31 | XMS REPORT ---
Author Author Marco HARDEN Organization [facility] Address [address] [place] [address] Care Team Providers Care Manager Social Media Name Role Phone MAMTA HARDEN Unavailable PROBLEMS Type Condition ICD9-CM Code [id number] Code Onset Dates Condition S tatus SNOMED Code Problem Loss of weight 783.21 Active 07865 5001 Problem Lumbago 724.2 Active 657956927 Problem Pain in joint, upper arm 719.42 Activ e 142819505 Problem Other chronic pain G89.29 Active 8 3803532 Problem Anxiety F41.9 Active 76828830 Problem Psychosexual dysfunction with inhibited sexual excitement 302.72 Active 739493478684761 Problem Impacted cerumen 380.4 Active 180 22426 Problem Mood disorder F39 Active 894535 05 Problem Unspecified episodic mood disorder 296.90 Active 521979362 ALLERGIES No Known Allergies ENCOUNTERS Encounter Location Date Diagnosis [address] [id number] December, Mood disorder F39 [address] [id number] 57 December, Mood disorder F39 and Weight loss R63.4 [place] [address] [address] [facility] [id number] [address] [place] [phone] Nov, Mood disorder F39 and Low ba ck pain M54.5 [place] [address] [address] [facility] [id number] [address] [place] [phone] Aug, Anxiety F41.9 [place] [address] [address] [facility] [id number] [address] [place] [phone] Aug, Anxiety F41.9 [place] [address] [place], [place] [id number] 57 Jul, Anxiety F41.9 ; Low back pain M54.5 ; Other chronic pain G89.29 and Gum abscess K05.219 [place] [address] [id number] [address] [place] [phone] 17 May, 2017 [facility] [address] [place] [id number] 57 10 May, 2017 Bronchitis J40 and Mood disorder F39 [facility] [address] [place] [id number] 57 11 Feb, 2017 Mood disorder F39 [facility] [address] [id number] [address] [place] [phone] 14 Nov, 2014 [facility] [address] [id number] [address] [place] [phone] Nov, [facility] [address] [id number] [address] [place] [phone] Oct, [facility] [address] [id number] [address] [place] [phone] Oct, [facility] [address] [id number] [address] [place] [phone] Oct, [facility] [address] [id number] [address] [place] [phone] Oct, [facility] [address] [place] [id number] 57 Oct, [facility] [address] [id number] [address] [place] [phone] Oct, [facility] [address] [id number] [address] [place] [phone] Sep, [facility] [address] [id number] [address] [place] [phone] Sep, [facility] [address] [id number] [address] [place] [phone] Apr, [facility] [address] [id number] [address] [place] [phone] Apr, [facility] [address] [id number] [address] [place] [phone] Mar, [facility] [address] [id number] [address] [place] [phone] Mar, [facility] [address] [id number] [address] [place] [phone] Jun, [facility] [address] [id number] [address] [place] [phone] Jun, [facility] [address] [place] [id number] 57 Apr, [facility] [address] [id number] [address] [place] [phone] December, [facility] [address] [id number] [address] [place] [phone] Nov, [facility] [address] [id number] [address] [place] [phone] Oct, [facility] [address] [id number] [address] [place] [phone] Oct, [facility] [address] [id number] [address] [place] [phone] Oct, [facility] [address] [id number] [address] [place] [phone] Oct, [facility] [address] [id number] [address] [place] [phone] Oct, IMMUNIZATIONS No Known Immunizations SOCIAL HISTORY Never Assessed REASON FOR VISIT [facility] PLAN OF CARE VITAL SIGNS MEDICATIONS Medication Instructions Dosage Frequency Start Date End Date Duration S tatus Ibuprofen 800 MG Orally Three times a day as needed 1 tablet wit h food or milk May, 30 day(s) Active Seroquel 300 MG Orally twice a day 1 tablet 12h Jul, 30 day(s) Active Benadryl 25 MG Orally every 8 hrs 1 capsule as needed 8h May, Active RESULTS No Results PROCEDURES No Known procedures INSTRUCTIONS MEDICATIONS ADMINISTERED No Known Medications
--- OUTSIDE RECORDS SUMMARY | 2019-12-15 08:31 | XMS REPORT ---
Author Author Marco HARDEN Organization [facility] Address [address] [place] [address] Care Team Providers Care Air Twist Operator Name Role Phone MAMTA HARDEN Unavailable PROBLEMS Type Condition ICD9-CM Code [id number] Code Onset Dates Condition S tatus SNOMED Code Problem Loss of weight 783.21 Active 81081 5001 Problem Lumbago 724.2 Active 060705111 Problem Pain in joint, upper arm 719.42 Activ e 288585792 Problem Other chronic pain G89.29 Active 8 6915212 Problem Anxiety F41.9 Active 31176569 Problem Psychosexual dysfunction with inhibited sexual excitement 302.72 Active 137296333958222 Problem Impacted cerumen 380.4 Active 180 47749 Problem Mood disorder F39 Active 188961 05 Problem Unspecified episodic mood disorder 296.90 Active 890588317 ALLERGIES No Known Allergies ENCOUNTERS Encounter Location Date Diagnosis [address] [id number] December, Mood disorder F39 and Weight loss R63.4 [place] [address] [id number] [address] [place] [phone] Nov, Mood disorder F39 and Low ba ck pain M54.5 [place] [address] [id number] [address] [place] [phone] Aug, Anxiety F41.9 [place] [address] [id number] [address] [place] [phone] Aug, Anxiety F41.[address] [id number] 57 Jul, Anxiety F41.9 ; Low back pain M54.5 ; Other chronic pain G89.29 and Gum abscess K05.219 [place] [address] [id number] [address] [place] [phone] May, [place] [address] [place], [place] [id number] 57 10 May, 2017 Bronchitis J40 and Mood disorder F39 [facility] [address] [place], [place] [id number] 57 11 Feb, 2017 Mood disorder F39 [facility] [address] [id number] [address] [place] [phone] 14 Nov, 2014 [facility] [address] [id number] [address] [place] [phone] Nov, [facility] [address] [id number] [address] [place] [phone] Oct, [facility] [address] [id number] [address] [place] [phone] Oct, [facility] [address] [id number] [address] [place] [phone] Oct, [facility] [address] [id number] [address] [place] [phone] Oct, [facility] [address] [place] [id number] 57 Oct, [facility] [address] [id number] [address] [place] [phone] Oct, [facility] [address] [id number] [address] [place] [phone] Sep, [facility] [address] [id number] [address] [place] [phone] Sep, [facility] [address] [id number] [address] [place] [phone] Apr, [facility] [address] [id number] [address] [place] [phone] Apr, [facility] [address] [id number] [address] [place] [phone] Mar, [facility] [address] [id number] [address] [place] [phone] Mar, [facility] [address] [id number] [address] [place] [phone] Jun, [facility] [address] [id number] [address] [place] [phone] Jun, [facility] [address] [place] [id number] 57 Apr, [facility] [address] [id number] [address] [place] [phone] December, [facility] [address] [id number] [address] [place] [phone] Nov, [facility] [address] [id number] [address] [place] [phone] Oct, [facility] [address] [id number] [address] [place] [phone] Oct, [facility] [address] [id number] [address] [place] [phone] Oct, [facility] [address] [id number] [address] [place] [phone] Oct, [facility] [address] [id number] [address] [place] [phone] Oct, IMMUNIZATIONS No Known Immunizations SOCIAL HISTORY Never Assessed REASON FOR VISIT [facility] PLAN OF CARE VITAL SIGNS Height 74 in 2017-06-07 Weight 138 lbs 2017-06-07 Heart Rate 60 bpm 2017-06-07 Respiratory Rate 16 2017-06-07 BMI 17.72 kg/m2 2017-06-07 Blood pressure systolic 108 mmHg 2017-06-07 Blood pressure diastolic 74 mmHg 2017-06-07 MEDICATIONS Medication Instructions Dosage Frequency Start Date End Date Duration S tatus Ibuprofen 800 MG Orally Three times a day as needed 1 tablet wit h food or milk May, Jun, 30 day(s) Active Risperdal 1 MG Orally at bedtime 1 tablet May, 3 0 day(s) Active Amoxicillin 500 mg Orally 3 times a day 1 tablet 8h May,May, 10 day(s) Active RESULTS No Results PROCEDURES No Known procedures INSTRUCTIONS MEDICATIONS ADMINISTERED No Known Medications
--- OUTSIDE RECORDS SUMMARY | 2019-12-15 08:31 | XMS REPORT ---
Author Author Marco HARDEN Organization [facility] Address [address] [place] [address] Care Team Providers Care Farm Machinery Erector Name Role Phone MAMTA HARDEN Unavailable PROBLEMS Type Condition ICD9-CM Code KBS34-LV Code Onset Dates Condition S tatus SNOMED Code Problem Loss of weight 783.21 Active 82296 5001 Problem Lumbago 724.2 Active 071195749 Problem Pain in joint, upper arm 719.42 Activ e 985206936 Problem Other chronic pain G89.29 Active 8 1457768 Problem Anxiety F41.9 Active 94163850 Problem Psychosexual dysfunction with inhibited sexual excitement 302.72 Active [id number] Problem Impacted cerumen 380.4 Active 180 80047 Problem Mood disorder F39 Active 948474 05 Problem Unspecified episodic mood disorder 296.90 Active [id number] ALLERGIES No Information ENCOUNTERS Encounter Location Date Diagnosis [address] [place] [id number] 57 December, Mood disorder F39 [address] [place], [place] [id number] 57 December, Mood disorder F39 and Weight loss R63.4 [place] [address] [facility] [id number] [address] [place] [phone] Nov, Mood disorder F39 and Low ba ck pain M54.5 [place] [address] [facility] [id number] [address] [place] [phone] Aug, Anxiety F41.9 [place] [address] [facility] [id number] [address] [place] [phone] Aug, Anxiety F41.9 [address] [place] [id number] 57 Jul, Anxiety F41.9 ; Low back pain M54.5 ; Other chronic pain G89.29 and Gum abscess K05.219 [place] [address] [id number] [address] [place] [phone] 17 May, 2017 [facility] [address] [place] [id number] 57 10 May, 2017 Bronchitis J40 and Mood disorder F39 [facility] [address] [place] [id number] 57 11 Feb, 2017 Mood disorder F39 [facility] [address] [id number] [address] [place] [phone] 14 Nov, 2014 [facility] [address] [id number] [address] [place] [phone] Nov, [facility] [address] [id number] [address] [place] [phone] Oct, [facility] [address] [id number] [address] [place] [phone] Oct, [facility] [address] [id number] [address] [place] [phone] Oct, [facility] [address] [id number] [address] [place] [phone] Oct, [facility] [address] [place] [place] [id number] 57 Oct, [facility] [address] [id number] [address] [place] [phone] Oct, [facility] [address] [id number] [address] [place] [phone] Sep, [facility] [address] [id number] [address] [place] [phone] Sep, [facility] [address] [id number] [address] [place] [phone] Apr, [facility] [address] [id number] [address] [place] [phone] Apr, [facility] [address] [id number] [address] [place] [phone] Mar, [facility] [address] [id number] [address] [place] [phone] Mar, [facility] [address] [id number] [address] [place] [phone] Jun, [facility] [address] [id number] [address] [place] [phone] Jun, [facility] [address] [place] [id number] 57 Apr, [facility] [address] [id number] [address] [place] [phone] December, [facility] [address] [id number] [address] [place] [phone] Nov, [facility] [address] [id number] [address] [place] [phone] Oct, [facility] [address] [id number] [address] [place] [phone] Oct, [facility] [address] [id number] [address] [place] [phone] Oct, [facility] [address] [id number] [address] [place] [phone] Oct, [facility] [address] [id number] [address] [place] [phone] Oct, IMMUNIZATIONS No Known Immunizations SOCIAL HISTORY Never Assessed REASON FOR VISIT [facility] rx PLAN OF CARE VITAL SIGNS MEDICATIONS Medication Instructions Dosage Frequency Start Date End Date Duration S tatus Seroquel 300 MG Orally twice a day 1 tablet 12h Jul, 30 day(s) Active RESULTS No Results PROCEDURES No Known procedures INSTRUCTIONS MEDICATIONS ADMINISTERED No Known Medications
--- OUTSIDE RECORDS SUMMARY | 2019-12-15 08:31 | XMS REPORT ---
Author Author Marco HARDEN Organization [facility] Address [address] [place] [address] Care Team Providers Care Software Project Engineer Name Role Phone MAMTA HARDEN Unavailable PROBLEMS Type Condition ICD9-CM Code JQS85-ES Code Onset Dates Condition S tatus SNOMED Code Problem Loss of weight 783.21 Active 78310 5001 Problem Lumbago 724.2 Active 780772647 Problem Pain in joint, upper arm 719.42 Activ e 937923703 Problem Other chronic pain G89.29 Active 8 7262137 Problem Anxiety F41.9 Active 47387178 Problem Psychosexual dysfunction with inhibited sexual excitement 302.72 Active 923166223107273 Problem Impacted cerumen 380.4 Active 180 65500 Problem Mood disorder F39 Active 290705 05 Problem Unspecified episodic mood disorder 296.90 Active [id number] ALLERGIES No Known Allergies ENCOUNTERS Encounter Location Date Diagnosis [address] [id number] 57 December, Mood disorder F39 [address] [id number] 57 December, Mood disorder F39 and Weight loss R63.4 [place] [address] [facility] [id number] [address] [place] [phone] Nov, Mood disorder F39 and Low ba ck pain M54.5 [place] [address] [facility] [id number] [address] [place] [phone] Aug, Anxiety F41.9 [place] [address] [facility] [id number] [address] [place] [phone] Aug, Anxiety F41.9 [place] [address] [place] [id number] 57 Jul, Anxiety F41.9 ; Low back pain M54.5 ; Other chronic pain G89.29 and Gum abscess K05.219 [place] [address] [id number] [address] [place] [phone] 17 May, 2017 [facility] [address] [place] [id number] 57 10 May, 2017 Bronchitis J40 and Mood disorder F39 [facility] [address] [place] [id number] 57 11 Feb, 2017 Mood disorder F39 [facility] [address] [id number] [address] [place] [phone] 14 Nov, 2014 [facility] [address] [id number] [address] [place] [phone] Nov, [facility] [address] [id number] [address] [place] [phone] Oct, [facility] [address] [id number] [address] [place] [phone] Oct, [facility] [address] [id number] [address] [place] [phone] Oct, [facility] [address] [id number] [address] [place] [phone] Oct, [facility] [address] [place] [id number] 57 Oct, [facility] [address] [id number] [address] [place] [phone] Oct, [facility] [address] [id number] [address] [place] [phone] Sep, [facility] [address] [id number] [address] [place] [phone] Sep, [facility] [address] [id number] [address] [place] [phone] Apr, [facility] [address] [id number] [address] [place] [phone] Apr, [facility] [address] [id number] [address] [place] [phone] Mar, [facility] [address] [id number] [address] [place] [phone] Mar, [facility] [address] [id number] [address] [place] [phone] Jun, [facility] [address] [id number] [address] [place] [phone] Jun, [facility] [address] [place] [id number] 57 Apr, [facility] [address] [id number] [address] [place] [phone] December, [facility] [address] [id number] [address] [place] [phone] Nov, [facility] [address] [id number] [address] [place] [phone] Oct, [facility] [address] [id number] [address] [place] [phone] Oct, [facility] [address] [id number] [address] [place] [phone] Oct, [facility] [address] [id number] [address] [place] [phone] Oct, [facility] [address] [id number] [address] [place] [phone] Oct, IMMUNIZATIONS No Known Immunizations SOCIAL HISTORY Never Assessed REASON FOR VISIT senior living PLAN OF CARE VITAL SIGNS Height 74 in 2017-12-27 Weight 155 lbs 2017-12-27 Heart Rate 74 bpm 2017-12-27 Respiratory Rate 16 2017-12-27 BMI 19.90 kg/m2 2017-12-27 Blood pressure systolic 116 mmHg 2017-12-27 Blood pressure diastolic 64 mmHg 2017-12-27 MEDICATIONS Medication Instructions Dosage Frequency Start Date End Date Duration S tatus Seroquel 400 MG Orally twice a day 1 tablet 12h Jul, 30 day(s) Active RESULTS No Results PROCEDURES No Known procedures INSTRUCTIONS MEDICATIONS ADMINISTERED No Known Medications
--- OUTSIDE RECORDS SUMMARY | 2019-12-15 08:31 | XMS REPORT ---
Author Author Marco HARDEN Organization [facility] Address [address] [place] [address] Care Team Providers Care Fitness Manager Name Role Phone MAMTA HARDEN Unavailable PROBLEMS Type Condition ICD9-CM Code SLU63-ES Code Onset Dates Condition S tatus SNOMED Code Problem Loss of weight 783.21 Active 21064 5001 Problem Pain in joint, upper arm 719.42 Activ e 550474378 Problem Lumbago 724.2 Active 742732384 Problem Anxiety F41.9 Active 24190582 Problem Other chronic pain G89.29 Active 8 6516318 Problem Impacted cerumen 380.4 Active 180 18663 Problem Psychosexual dysfunction with inhibited sexual excitement 302.72 Active 431620863070086 Problem Unspecified episodic mood disorder 296.90 Active 235722207 Problem Mood disorder F39 Active 311219 05 ALLERGIES No Information ENCOUNTERS Encounter Location Date Diagnosis [place] [address] [place], [place] [id number] 57 December, Mood disorder F39 [place] [address] [place] [id number] 57 December, Mood disorder F39 and Weight loss R63.4 [place] [address] [facility] [id number] [address] [place] [phone] Nov, Mood disorder F39 and Low ba ck pain M54.5 [place] [address] [facility] [id number] [address] [place] [phone] Aug, Anxiety F41.9 [place] [address] [facility] [id number] [address] [place] [phone] Aug, Anxiety F41.9 [place] [address] [place], [place] [id number] 57 Jul, Anxiety F41.9 ; Low back pain M54.5 ; Other chronic pain G89.29 and Gum abscess K05.219 [place] [address] [id number] [address] [place] [id number] 17 May, 2017 [facility] [address] [place] [id number] 57 10 May, 2017 Bronchitis J40 and Mood disorder F39 [facility] [address] [place] [id number] 57 11 Feb, 2017 Mood disorder F39 [facility] [address] [id number] [address] [place] [phone] 14 Nov, 2014 [facility] [address] [id number] [address] [place] [phone] Nov, [facility] [address] [id number] [address] [place] [phone] Oct, [facility] [address] [id number] [address] [place] [phone] Oct, [facility] [address] [id number] [address] [place] [phone] Oct, [facility] [address] [id number] [address] [place] [phone] Oct, [facility] [address] [place] [id number] 57 Oct, [facility] [address] [id number] [address] [place] [phone] Oct, [facility] [address] [id number] [address] [place] [phone] Sep, [facility] [address] [id number] [address] [place] [phone] Sep, [facility] [address] [id number] [address] [place] [phone] Apr, [facility] [address] [id number] [address] [place] [phone] Apr, [facility] [address] [id number] [address] [place] [phone] Mar, [facility] [address] [id number] [address] [place] [phone] Mar, [facility] [address] [id number] [address] [place] [phone] Jun, [facility] [address] [id number] [address] [place] [phone] Jun, [facility] [address] [place] [id number] 57 Apr, [facility] [address] [id number] [address] [place] [phone] December, [facility] [address] [id number] [address] [place] [phone] Nov, [facility] [address] [id number] [address] [place] [phone] Oct, [facility] [address] [facility] [id number] [address] [place] [phone] Oct, [facility] [address] [id number] [address] [place] [phone] Oct, [facility] [address] [id number] [address] [place] [phone] Oct, [facility] [address] [facility] [id number] [address] [place] [phone] Oct, IMMUNIZATIONS No Known Immunizations SOCIAL HISTORY Never Assessed REASON FOR VISIT PLAN OF CARE VITAL SIGNS MEDICATIONS Unknown Medications RESULTS No Results PROCEDURES No Known procedures INSTRUCTIONS MEDICATIONS ADMINISTERED No Known Medications
--- OUTSIDE RECORDS SUMMARY | 2019-12-15 08:31 | XMS REPORT ---
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 Grader Operator Name Role Phone MAMTA HARDEN Unavailable PROBLEMS Type Condition ICD9-CM Code KMV38-XB Code Onset Dates Condition S tatus SNOMED Code Problem Loss of weight 783.21 Active 23122 5001 Problem Lumbago 724.2 Active 850528427 Problem Pain in joint, upper arm 719.42 Activ e 897225062 Problem Other chronic pain G89.29 Active 8 4348638 Problem Anxiety F41.9 Active 90446232 Problem Psychosexual dysfunction with inhibited sexual excitement 302.72 Active 448279920465382 Problem Impacted cerumen 380.4 Active 180 84150 Problem Mood disorder F39 Active 234529 05 Problem Unspecified episodic mood disorder 296.90 Active [id number] ALLERGIES No Known Allergies ENCOUNTERS Encounter Location Date Diagnosis [address] [id number] 57 December, Mood disorder F39 [address] [id number] 57 December, Mood disorder F39 and Weight loss R63.4 [place] [address] [address] [facility] [id number] [address] [place] [phone] Nov, Mood disorder F39 and Low ba ck pain M54.5 [place] [address] [address] [facility] [id number] [address] [place] [phone] Aug, Anxiety F41.9 [place] [address] [address] [facility] [id number] [address] [place] [address] Aug, Anxiety F41.9 [place] [address] [place] [place] [id number] 57 Jul, Anxiety F41.9 ; Low back pain M54.5 ; Other chronic pain G89.29 and Gum abscess K05.219 [place] [address] [id number] [address] [place] [phone] 17 May, 2017 [facility] [address] [place] [id number] 57 10 May, 2017 Bronchitis J40 and Mood disorder F39 [facility] [address] [place] [id number] 57 11 Feb, 2017 Mood disorder F39 [facility] [address] [id number] [address] [place] [phone] 14 Nov, 2014 [facility] [address] [id number] [address] [place] [phone] Nov, [facility] [address] [id number] [address] [place] [phone] Oct, [facility] [address] [id number] [address] [place] [phone] Oct, [facility] [address] [id number] [address] [place] [phone] Oct, [facility] [address] [id number] [address] [place] [phone] Oct, [facility] [address] [id number] 57 Oct, [facility] [address] [id number] [address] [place] [phone] Oct, [facility] [address] [id number] [address] [place] [phone] Sep, [facility] [address] [id number] [address] [place] [phone] Sep, [facility] [address] [id number] [address] [place] [phone] Apr, [facility] [address] [id number] [address] [place] [phone] Apr, [facility] [address] [id number] [address] [place] [phone] Mar, [facility] [address] [id number] [address] [place] [phone] Mar, [facility] [address] [id number] [address] [place] [phone] Jun, [facility] [address] [id number] [address] [place] [phone] Jun, [facility] [address] [id number] 57 Apr, [facility] [address] [id number] [address] [place] [phone] December, [facility] [address] [id number] [address] [place] [phone] Nov, [facility] [address] [id number] [address] [place] [phone] Oct, [facility] [address] [id number] [address] [place] [phone] Oct, [facility] [address] [id number] [address] [place] [id number] Oct, [facility] [address] [id number] [address] [place] [phone] Oct, [facility] [address] [id number] [address] [place] [phone] Oct, IMMUNIZATIONS No Known Immunizations SOCIAL HISTORY Never Assessed REASON FOR VISIT INTERMEDIATE PLAN OF CARE VITAL SIGNS Height 74 in 2018-01-10 Weight 152 lbs 2018-01-10 Heart Rate 84 bpm 2018-01-10 Respiratory Rate 16 2018-01-10 BMI 19.51 kg/m2 2018-01-10 Blood pressure systolic 110 mmHg 2018-01-10 Blood pressure diastolic 86 mmHg 2018-01-10 MEDICATIONS Unknown Medications RESULTS No Results PROCEDURES No Known procedures INSTRUCTIONS MEDICATIONS ADMINISTERED No Known Medications
[2019-12-15] MEDS ORDERED: SULF1TAB35 PO (08:48)
--- NOTE | 2019-12-15 08:49 | ED Integumentary General ---
General Chief Complaint: Skin/Wound Problems Stated Complaint: SORE ON BACK OF HEAD Source: patient Exam Limitations: no limitations History of Present Illness Date Seen by Provider: Dec 15, 2019 Time Seen by Provider: 08:30 Initial Comments This 49-year-old man presents to the emergency room with a sore on the left posterior scalp that is been present for about 4 days. It started as a tender lump and then broke open and has been draining purulent material. His significant other expressed a significant amount of pus like drainage from it prior to coming to the emergency room. He denies any fevers. He has had a prior axillary abscess requiring treatment. Allergies and Home Medications Allergies Coded Allergies: No Known Drug Allergies (Unverified , 06/28/12) Home Medications Cephalexin Monohydrate 500 Mg Capsule, 1 EACH PO TID Prescribed by: JOY CAMARA on 03/06/14224 Sulfamethoxazole/Trimethoprim 1 Each Tablet, 1 EACH PO BID Prescribed by: MICHAEL BURT on 12/15/19 0848 Tramadol Hcl 50 Mg Tablet, 50 MG PO Q4H PRN for PAIN Prescribed by: JOY CAMARA on 03/06/14224 Patient Home Medication List Home Medication List Reviewed: Yes Review of Systems Review of Systems Constitutional: no symptoms reported EENTM: see HPI Respiratory: no symptoms reported Cardiovascular: no symptoms reported Gastrointestinal: no symptoms reported Genitourinary: no symptoms reported Musculoskeletal: no symptoms reported Skin: see HPI Psychiatric/Neurological: No Symptoms Reported Endocrine: No Symptoms Reported Hematologic/Lymphatic: No Symptoms Reported Past Iakfcjj-Dyukks-Idllai Hx Past Med/Social Hx: Reviewed and Corrections made Patient Social History Alcohol Use: Denies Use Recreational Drug Use: No Smoking Status: Current Everyday Smoker Type Used: Cigarettes Recent Foreign Travel: No Contact w/Someone Who Travel: No Physical Abuse: No Sexual Abuse: No Mistreated: No Fear: No Immunizations Up To Date Tetanus Booster (TDap): Less than 5yrs Past Medical History Surgeries: No Respiratory: No Cardiac: No Neurological: No Reproductive Disorders: No Sexually Transmitted Disease: No Gastrointestinal: No Musculoskeletal: No Endocrine: No Cancer: No Psychosocial: No Integumentary: Yes (history of skin abscess) Blood Disorders: No Physical Exam Vital Signs Vital Signs - First Documented 12/15/19 08:35 Temp 36.5 Pulse 90 Resp 16 B/P (MAP) 134/97 (109) Pulse Ox 98 Capillary Refill : General Appearance: WD/WN, no apparent distress HEENT: PERRL/EOMI, other (there is no inflamed cratered lesion on the left posterior scalp that has purulent and necrotic material in the center. The affected area is about 2 cm in diameter with the cratered area about 1 cm in diameter. A small amount of purulent material can be expressed.) Neck: normal inspection Cardiovascular: regular rate, rhythm, no edema, no murmur Respiratory: lungs clear, normal breath sounds, no respiratory distress, no accessory muscle use Neurologic/Psychiatric: distribution manager II-XII nml as tested, no motor/sensory deficits, alert, normal mood/affect, oriented x 3, EOM palsy, depressed affect Skin: normal color, warm/dry, other (see description of lesion above) Skin Problem Character: abscess Procedures/Interventions I&D : Blade Size: 11 Progress Wound culture was collected. Skin was cleaned with chlorhexidine wipes. The eschared and necrotic appearing center of the lesion was removed with a scalpel. Forceps were then used to clear more debris. The area was then irrigated with sterile saline and chlorhexidine soap. Wound did not require packing or dressing. Progress/Results/Core Measures Results/Orders Vital Signs/I&O 12/15/19 12/15/19 08:35 08:58 Temp 36.5 Pulse 90 89 Resp 16 16 B/P (MAP) 134/97 (109) 130/89 Pulse Ox 98 98 Departure Impression Primary Impression: Scalp abscess Additional Impression: Visit for debridement Disposition: 01 HOME, SELF-CARE Condition: Improved Departure-Patient Inst. Referrals: NO,LOCAL PHYSICIAN (PCP/Family) Primary Care Physician Patient Instructions: Skin Abscess Add. Discharge Instructions: Keep the wound clean and dry except for normal showering. You may allow soapy water to run over the wound in the shower. Avoid submerging such as swimming until wound is healed. If the wound closes over and pressure builds up again, you may use warm moist compresses to help soften the skin and encourage draining. Complete the entire course of antibiotics as prescribed. Return to care if you have worsening symptoms or if you develop new symptoms such as fever. You may use Tylenol and/or ibuprofen for pain. Return as needed for wound check to monitor progression of healing. All discharge instructions reviewed with patient and/or family. Voiced u nderstanding. Scripts Sulfamethoxazole/Trimethoprim (Bactrim Ds Tablet) 1 Each Tablet 1 EACH PO BID, #20 TAB Prov: MICHAEL JAMISON MD 12/15/19 MICHAEL JAMISON MD Dec 15, 2019 08:49
[2019-12-15 08:58] VITALS: BP 130/89
== END 2019-12-15 08:58 | disposition home or self-care (01) ==
LOC: EDUNIT# 08:25 → ER 08:26
DX: L02.811 Cutaneous abscess of head [any part, except face] (principal); F17.210 Nicotine dependence, cigarettes, uncomplicated
CPT/HCPCS: 87070; 87077; 87186; 87205; 99282

== ENCOUNTER 2022-05-14 07:15 | Emergency (ER) | payer SELFPAY ==
[~2022-05-14] VITALS: Ht 188 cm; Wt 74.8 kg
[2022-05-14] MEDS ORDERED: NS IV 1000 ML 1,000 ML IV SCH (07:45)
[2022-05-14] MEDS ORDERED: KETOROLAC 30 MG/ML VIAL IVP ONE (07:45)
--- NOTE | 2022-05-14 07:56 | ED Cough/URI ---
General Chief Complaint: COVID19 Suspect/Confirmed Stated Complaint: BODY ACHES, HEADACHE, TROUBLE BREATHING Nursing Triage Note: PT AMBULATE TO ROOM 10 WITHOUT DIFFICULTY WITH C/O SOB, CHEST PAIN, COUGH, AND HEADACHE X2 DAYS. Source: patient Exam Limitations: no limitations History of Present Illness Date Seen by Provider: May 14, 2022 Time Seen by Provider: 07:40 Initial Comments Patient is a 52-year-old male, negative past medical history who presents to the emergency room with 2 days of body aches, URI symptoms, productive cough that is green or yellow, headache and generalized malaise. He is vaccinated for COVID. He had some incarceration about 9 months ago. He takes no daily medications. He states he smokes about 1/2 pack of cigarettes a day. He has been taking ibuprofen for his symptoms without relief. No nausea, vomiting. Some loose stools. No black or bloody stools. No urinary problems. No rashes, joint pain or swelling. He does endorse body aches. Headache is "severe" he says he was a little lightheaded when he got up this morning. Decreased appetite. Sick contacts at work someone with strep throat and someone else with some other type of upper respiratory infection. He has not been tested for COVID in the last couple of days. He states his chest feels "heavy". All other review of systems reviewed and negative except as stated. Timing/Duration: other (2 days) Severity/Quality: moderate, productive cough Prior Episodes/Possible Cause: illness exposure Associated Symptoms: cough, dizziness, headache, muscle aches, shortness of breath Allergies and Home Medications Allergies Coded Allergies: No Known Drug Allergies (Unverified , 06/28/12) Patient Home Medication List Home Medication List Reviewed: Yes Albuterol Sulfate (Proair Hfa) 1 Puff Puff, 2 PUFF IH Q6H PRN for Shortness of breath Prescribed by: YAMILETH CHANDLER on 05/14/22932 Cephalexin Monohydrate (Cephalexin) 500 Mg Capsule, 1 EACH PO TID Prescribed by: JOY CAMARA on 03/06/14 0225 Doxycycline Hyclate (Doxycycline Hyclate) 100 Mg Tablet, 100 MG PO BID Prescribed by: YAMILETH CHANDLER on 05/14/22932 Sulfamethoxazole/Trimethoprim (Bactrim Ds Tablet) 1 Each Tablet, 1 EACH PO BID Prescribed by: MICHAEL BURT on 12/15/19 0848 Tramadol Hcl (Tramadol Hcl) 50 Mg Tablet, 50 MG PO Q4H PRN for PAIN Prescribed by: JOY CAMARA on 03/06/14 0225 Review of Systems Review of Systems Constitutional: see HPI, malaise EENTM: no symptoms reported Respiratory: cough, short of breath Cardiovascular: chest pain ("heaviness") Gastrointestinal: no symptoms reported Genitourinary: no symptoms reported Musculoskeletal: muscle cramps (body aches) Skin: no symptoms reported Psychiatric/Neurological: Headache Past Txurinw-Offoqn-Clfvgi Hx Patient Social History Tobacco Use?: Yes Tobacco type used: Cigarettes Smoking Status: Heavy Tobacco Smoker Smokeless Tobacco Frequency: Never a User Use of E-Cig and/or Vaping dev: Yes E-Cig or Vaping type used: Nicotine Use of E-Cig and/or Vaping Erick: Current Everyday User Substance use?: No Alcohol Use?: No Pt feels they are or have been: No Immunizations Up To Date Tetanus Booster (TDap): Less than 5yrs COVID19 Vaccine [place] Manager: Notizza Past Medical History Surgeries: No Respiratory: No Cardiac: No Neurological: No Reproductive Disorders: No Sexually Transmitted Disease: No Gastrointestinal: No Musculoskeletal: No Endocrine: No Cancer: No Psychosocial: No Integumentary: Yes (history of skin abscess) Blood Disorders: No Physical Exam Vital Signs - First Documented Capillary Refill : Less Than 3 Seconds Height: 6'2" Weight: 160lbs. oz. [id number]; 21.00 BMI Method:Stated General Appearance: WD/WN, no apparent distress, thin Eyes: Bilateral Eye Normal Inspection, Bilateral Eye PERRL, Bilateral Eye EOMI HEENT: PERRL/EOMI, normal ENT inspection, TMs normal, pharynx normal, other (dry oral mucosa) Respiratory: no respiratory distress, no accessory muscle use, crackles (occ crackles bilateral bases) Cardiovascular: regular rate, rhythm Gastrointestinal: normal bowel sounds, non tender, soft Extremities: normal range of motion, non-tender, normal inspection, no pedal edema, no calf tenderness Neurologic/Psychiatric: alert, normal mood/affect, oriented x 3 Skin: normal color, warm/dry Progress/Results/Core Measures Suspected Sepsis SIRS Temperature: Pulse: 79 Respiratory Rate: 18 Blood Pressure 130 /82 Mean: 98 Results/Orders Lab Results Laboratory Tests Test 05/14/22 07:48 Range/Units SARS-CoV-2 RNA (RT-PCR) Not Detected Not Detecte My Orders Orders - YAMILETH CHANDLER MD Ekg Tracing (05/14/22 07:27) Covid 19 Inhouse Test (05/14/22 07:30) Isolation Central Supply Req (05/14/22 07:30) Chest 1 View, Ap/Pa Only (05/14/22 07:41) Ns Iv 1000 Ml (Sodium Chloride 0.9%) (05/14/22 07:45) Ketorolac Injection (Toradol Injection) (05/14/22 07:45) Medications Given in ED Current Medications Medications Dose Ordered Sig/Paco Route Start Time Stop Time Status Last Admin Dose Admin Ketorolac Tromethamine 30 mg ONCE ONCE IVP 05/14/22 07:45 05/14/22 07:46 DC 05/14/22 08:06 30 MG Vital Signs/I&O 05/14/22 05/14/22 07:22 07:22 Temp 37.4 Pulse 79 Resp 18 B/P (MAP) 130/82 (98) O2 Delivery Room Air Room Air Capillary Refill : Less Than 3 Seconds Blood Pressure Mean: 98 Progress Note : Time: 09:29 Progress Note Patient's labs reviewed, negative for COVID and influenza. Chest x-ray is unremarkable. Secondary to his smoking history and symptoms however I am going to put him on a short course of antibiotics, doxycycline twice a day for 10 days. We will give him an inhaler for his shortness of breath. Recommend fluids to stay well-hydrated, ibuprofen/Tylenol for pain. Return precautions provided. He verbalized understanding. All questions were sought and answered. Patient is stable for discharge. ECG Initial ECG Impression Date: May 14, 2022 Initial ECG Impression Time: 07:30 Initial ECG Rate: 81 Initial ECG Rhythm: Normal Sinus Initial ECG Intervals: Normal Initial ECG Impression: Normal Diagnostic Imaging Diagonstic Imaging: Xray Plain Films/CT/US/NM/MRI: chest Comments [facility]. [address], [place] NAME: RAY ODELL REC#: [id number] PT STATUS: REG ER : 1970 PHYSICIAN: YAMILETH CHANDLER MD ADMIT DATE: 05/14/22/ER Draft Date of Exam:05/14/22 CHEST 1 VIEW, AP/PA ONLY INDICATION: Shortness of air and cough. I have no priors. FINDINGS: The lungs are hyperexpanded favored to reflect underlying COPD or nonspecific air trapping. No focal consolidation. The heart size within the upper limits of normal. There is no overt failure pattern or irene vascular congestion. There is no pleural fluid. There is no pneumothorax. The hilar and mediastinal contours normal. IMPRESSION: Air trapping with no acute or focal abnormality identified. Dictated on workstation # [id number] Dict: 05/14/2248 Trans: 05/14/2253 [facility] [id number] Interpreted by: YR BLACKBURN Electronically signed by: Counseling-Symptomatic: 3-10 Minutes Follow-up with PCP to: Discuss Further Options Departure Impression Primary Impression: Viral syndrome Additional Impressions: Bronchitis Tobacco abuse Disposition: HOME, SELF-CARE Condition: Stable Departure-Patient Inst. Decision time for Depature: 09:31 Referrals: [facility] [place] PHYSICIAN (PCP) Primary Care Physician Patient Instructions: Quitting Smoking ED, Acute Bronchitis, Adult (DC) Add. Discharge Instructions: Please try and quit smoking. This will help prevent you from getting further respiratory infections. Take the doxycycline twice a day for the next 10 days. Please finish the entire course of antibiotics even when you are feeling better. Use the inhaler, 1 to 2 puffs every 6 hours as needed for shortness of breath. Take ibuprofen, 3 tablets which is 600 mg every 6 hours with food as needed for pain, you can alternate with extra strength Tylenol, 2 tablets every 6 hours for pain as well. If you have any worsening symptoms over the next 1 to 2 days especially with high fever, worsening shortness of breath or any other emergent, concerning symptoms please come back to the emergency room for reevaluation. Scripts Albuterol Sulfate (PROAIR HFA) 1 Puff Puff 2 PUFF IH Q6H PRN for Shortness of breath, #1 EA 1 PUFF = 90 MCG Prov: YAMILETH CHANDLER MD 05/14/22 Doxycycline Hyclate (Doxycycline Hyclate) 100 Mg Tablet 100 MG PO BID, #20 TAB 0 Refills Prov: YAMILETH CHANDLER MD 05/14/22 Work/School Note: Work Release Form Date Seen in the Emergency Department: May 14, 2022 Return to Work: May 15, 2022 YAMILETH CHANDLER MD May 14, 2022 07:56
--- NOTE | 2022-05-14 08:53 | Diagnostic Imaging Report ---
INDICATION: Shortness of air and cough. I have no priors. FINDINGS: The lungs are hyperexpanded favored to reflect underlying COPD or nonspecific air trapping. No focal consolidation. The heart size within the upper limits of normal. There is no overt failure pattern or irene vascular congestion. There is no pleural fluid. There is no pneumothorax. The hilar and mediastinal contours normal. IMPRESSION: Air trapping with no acute or focal abnormality identified. Dictated by: Dictated on workstation # [id number]
[2022-05-14] MEDS ORDERED: RT-ALBUINH IH (09:33)
[2022-05-14] MEDS ORDERED: DOXY100T2 PO (09:33)
[2022-05-14 09:58] VITALS: BP 130/84
== END 2022-05-14 09:53 | disposition home or self-care (01) ==
LOC: EDUNIT# 07:15 → ER 07:18
DX: J40 Bronchitis, not specified as acute or chronic (principal); B34.9 Viral infection, unspecified; F17.290 Nicotine dependence, other tobacco product, uncomplicated; Z20.822 Contact with and (suspected) exposure to COVID-19; Z28.311 Partially vaccinated for COVID-19
CPT/HCPCS: 71045; 87636; 93005

== ENCOUNTER 2022-06-06 08:35 | Emergency (ER) | payer SELFPAY ==
[~2022-06-06] VITALS: Ht 190.5 cm; Wt 74.8 kg
[~2022-06-06 08:35] MED LIST changes: +DOXY100T2 PO; +RT-ALBUINH IH
[2022-06-06 08:45] VITALS: BP 132/81
[2022-06-06 09:02] LABS: BILIRUBIN,URINE NEGATIVE (NEGATIVE); CLARITY,URINE SL CLOUDY; COLOR,URINE YELLOW; GLUCOSE, URINE (UA) NEGATIVE (NEGATIVE); KETONES,URINE NEGATIVE (NEGATIVE); LEUKOCYTE ESTERASE ,URINE 1+ (NEGATIVE); NITRITE,URINE NEGATIVE (NEGATIVE); PH,URINE 7.5 (5-9); PROTEIN,URINE TRACE (NEGATIVE)
--- NOTE | 2022-06-06 09:06 | ED GU-Female ---
General Chief Complaint: - Reproductive Stated Complaint: TESTICLE PAIN - BLOOD IN URINE Nursing Triage Note: PT AMB TO RM 9 WITH COMPLAINT OF RIGHT GROIN PAIN, FREQUENT URINATION, AND BLOOD IN URINE. STATES SYMPTOMS STARTED 2 DAYS AGO. Source: patient Exam Limitations: no limitations History of Present Illness Date Seen by Provider: Jun 06, 2022 Time Seen by Provider: 08:55 Initial Comments 52-year-old male presents emergency department today for for blood in his urine. He states he frequently has a feeling of needing to urinate but only goes a small amount and over the last couple days he has had blood in it. Symptoms started on Tuesday. No fevers chills nausea or vomiting. No new sexual partners per his report. No discharge. Does complain of some pain in his right groin region. 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 Allergies and Home Medications Allergies Coded Allergies: No Known Drug Allergies (Unverified , 06/28/12) Patient Home Medication List Home Medication List Reviewed: Yes Albuterol Sulfate (Proair Hfa) 1 Puff Puff, 2 PUFF IH Q6H PRN for Shortness of breath Prescribed by: YAMILETH CHANDLER on 05/14/22932 Cephalexin Monohydrate (Cephalexin) 500 Mg Capsule, 1 EACH PO TID Prescribed by: JOY CAMARA on 03/06/14224 Clindamycin HCl (Clindamycin HCl) 150 Mg Capsule, 300 MG PO TID Prescribed by: LESLIE PANCHAL MD on 06/06/22 0931 Doxycycline Hyclate (Doxycycline Hyclate) 100 Mg Tablet, 100 MG PO BID Prescribed by: YAMILETH CHANDLER on 05/14/22 0933 Sulfamethoxazole/Trimethoprim (Bactrim Ds Tablet) 1 Each Tablet, 1 EACH PO BID Prescribed by: MICHAEL BURT on 12/15/19 0848 Tramadol Hcl (Tramadol Hcl) 50 Mg Tablet, 50 MG PO Q4H PRN for PAIN Prescribed by: JOY CAMARA on 03/06/14224 Review of Systems Review of Systems Constitutional: no symptoms reported EENTM: no symptoms reported Respiratory: no symptoms reported Cardiovascular: no symptoms reported Gastrointestinal: no symptoms reported Genitourinary: dysuria, frequency; denies flank pain; hematuria Musculoskeletal: no symptoms reported Skin: no symptoms reported Psychiatric/Neurological: No Symptoms Reported Endocrine: No Symptoms Reported Hematologic/Lymphatic: No Symptoms Reported Past Nfutuac-Enhkzr-Ogmqoe Hx Patient Social History Tobacco Use?: Yes Tobacco type used: Cigarettes Smoking Status: Current Everyday Smoker Use of E-Cig and/or Vaping dev: No Substance use?: No Additional substance use comme: FORMER Alcohol Use?: No Pt feels they are or have been: No Immunizations Up To Date Tetanus Booster (TDap): Less than 5yrs Past Medical History Surgeries: No Respiratory: No Cardiac: No Neurological: No Reproductive Disorders: No Sexually Transmitted Disease: No Gastrointestinal: No Musculoskeletal: No Endocrine: No Cancer: No Psychosocial: No Integumentary: Yes (history of skin abscess) Blood Disorders: No Family Medical History Reviewed Nursing Family Hx No Pertinent Family Hx Physical Exam Vital Signs Vital Signs - First Documented 06/06/22 08:45 Pulse 89 Resp 16 B/P (MAP) 132/81 (98) Pulse Ox 98 O2 Delivery Room Air Capillary Refill : Less Than 3 Seconds Height, Weight, BMI Height: 6'2" Weight: 160lbs. oz. 72.757735ah; 20.00 BMI Method:Stated General Appearance: WD/WN, no apparent distress HEENT: normal ENT inspection, pharynx normal Neck: non-tender, full range of motion, supple, normal inspection Cardiovascular: regular rate, rhythm, no gallop, no JVD, no murmur Respiratory: chest non-tender, lungs clear, normal breath sounds, no respiratory distress, no accessory muscle use Gastrointestinal: normal bowel sounds, non tender, soft, no organomegaly Pelvic: normal external exam, normal adnexa Extremities: normal range of motion, non-tender, normal inspection, no pedal edema, no calf tenderness, normal capillary refill Neurologic/Psychiatric: no motor/sensory deficits, alert, oriented x 3 Skin: normal color, warm/dry Lymphatic: no adenopathy Progress/Results/Core Measures Suspected Sepsis SIRS Temperature: Pulse: 89 Respiratory Rate: 16 Blood Pressure 132 /81 Mean: 98 Results/Orders Lab Results Laboratory Tests Test 06/06/22 08:57 Range/Units Urine Color YELLOW Urine Clarity SL CLOUDY Urine pH 7.5 5-9 Urine Specific [place] 1.020 1.016-1.022 Urine Protein TRACE H NEGATIVE Urine Glucose (UA) NEGATIVE NEGATIVE Urine Ketones NEGATIVE NEGATIVE Urine Nitrite NEGATIVE NEGATIVE Urine Bilirubin NEGATIVE NEGATIVE Urine Urobilinogen 0.2 < = 1.0 MG/DL Urine Leukocyte Esterase 1+ H NEGATIVE Urine RBC (Auto) 3+ H NEGATIVE Urine RBC >100 H /HPF Urine WBC 25-50 H /HPF Urine Crystals NONE /LPF Urine Bacteria FEW H /HPF Urine Casts NONE /LPF Urine Mucus NEGATIVE /LPF Urine Culture Indicated YES My Orders Orders - LESLIE PANCHAL DO Ua Culture If Indicated (06/06/22 08:56) Urine Culture (06/06/22 08:57) Vital Signs/I&O 06/06/22 08:45 Pulse 89 Resp 16 B/P (MAP) 132/81 (98) Pulse Ox 98 O2 Delivery Room Air Capillary Refill : Less Than 3 Seconds Blood Pressure Mean: 98 Departure Communication (Admissions) Patient is hemodynamically stable. Does have what appears to be a urinary tract infection. He declines any STI testing at this time due to a longstanding relationship. Treated with antibiotics and discharged in stable condition. No evidence of epididymitis, testicular issues including torsion. Impression Primary Impression: Urinary tract infection Qualified Codes: N30.01 - Acute cystitis with hematuria Disposition: HOME, SELF-CARE Condition: Stable Departure-Patient Inst. Referrals: NO,LOCAL PHYSICIAN (PCP/Family) Primary Care Physician Patient Instructions: Urinary Tract Infection, Adult (DC) Add. Discharge Instructions: Please take the antibiotics as prescribed until they are gone. Increase your fluids. Return to the emergency department for any severe concerns. Follow-up with your primary doctor should your symptoms persist All discharge instructions reviewed with patient and/or family. Voiced understanding. Scripts Clindamycin HCl (Clindamycin HCl) 150 Mg Capsule 300 MG PO TID for 7 Days, #42 CAP Prov: LESLIE PANCHAL DO 06/06/22 LESLIE PANCHAL DO Jun 06, 2022 09:06
[2022-06-06 09:10] LABS: BACTERIA,URINE FEW /HPF; RBC,URINE >100 /HPF; WBC,URINE 25-50 /HPF
[2022-06-06] MEDS ORDERED: CLIN150C20 PO (09:31)
== END 2022-06-06 09:42 | disposition home or self-care (01) ==
LOC: EDUNIT# 08:35 → ER 08:37
DX: N39.0 Urinary tract infection, site not specified (principal); F17.210 Nicotine dependence, cigarettes, uncomplicated
CPT/HCPCS: 81000; 87077; 87088; 87186; 99282

== ENCOUNTER 2023-03-11 20:14 | Emergency (ER) | payer SELFPAY ==
[~2023-03-11] VITALS: Ht 190.5 cm; Wt 73.0 kg
[~2023-03-11 20:14] MED LIST changes: +ALBU8.5H6 IH; +CLIN150C20 PO; -RT-ALBUINH IH
[2023-03-11 20:20] VITALS: BP 97/74
[2023-03-11] MEDS ORDERED: LACTATED RINGERS 1,000 ML IV ONE (20:30)
[2023-03-11] MEDS ORDERED: CEFEPIME INJECTION 1,000 MG in NS (IVPB) 50 ML IV ONE (20:45)
--- NOTE | 2023-03-11 20:47 | ED General ---
General Chief Complaint: Fever-Adult/Adol Stated Complaint: FEVER/CHILLS Source of Information: Patient History of Present Illness Date Seen by Provider: Mar 11, 2023 Time Seen by Provider: 19:25 Initial Comments PT ARRIVES VIA POV FROM HOME WITH S.O. PT STATES HE HAS FELT BAD SINCE YESTERDAY WITH: -FEVER UP TO 102 -BODY ACHES -GENERALIZED HEADACHE -COUGH/CONGESTION/CLEAR RUNNY NOSE -SORE THROAT--WITH SMOKING NO NAUSEA/VOMITING/DIARRHEA OR ABDOMINAL PAIN HE HAS BEEN EATING AND DRINKING NORMALLY NO URINARY SYMPTOMS AND VOIDING A NORMAL AMOUNT NO NECK PAIN OR STIFFNESS NO CHEST PAIN OR PAIN WITH BREATHING OR SHORTNESS OF BREATH NO DIZZINESS OR SYNCOPE NO KNOWN SICK CONTACTS TOOK IBUPROFEN AT 1800 TONIGHT, OTHERWISE HAS NOT TAKEN ANYTHING FOR SYMPTOMS PT HAS HAD COVID VACCINE X 2, AND FLU VACCINE FOR THIS SEASON PT SMOKES 1-2 PPD PT IS RECOVERING ALCOHOLIC--USED TO DRINK 30 PACK/DAY, CLAIMS NONE X 20 YEARS 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 HE DENIES ANY OTHER MEDICAL PROBLEMS HE HAD AN APPOINTMENT TODAY WITH DR. AKIOK MILLER AT [facility], "BUT I FORGOT ABOUT IT" PCP: DR. FIORE, AND ALSO SEES DR. AKIKO MILLER AT [facility] Allergies and Home Medications Allergies Coded Allergies: No Known Drug Allergies (Unverified , 06/28/12) Patient Home Medication List Home Medication List Reviewed: Yes Albuterol Sulfate (Ventolin Hfa) 1 Puff Puff, 2 PUFF IH Q6H PRN for Shortness of breath Prescribed by: YAMILETH CHANDLER on 05/14/22932 Azithromycin (Zithromax) 500 Mg Tablet, 500 MG PO DAILY Prescribed by: JUAN MEJÍA on 03/11/232148 Cefdinir (Cefdinir) 300 Mg Capsule, 300 MG PO BID Prescribed by: JUAN MEJÍA on 03/11/232148 Cephalexin Monohydrate (Cephalexin) 500 Mg Capsule, 1 EACH PO TID Prescribed by: JOY CAMARA on 03/06/14224 Clindamycin HCl (Clindamycin HCl) 150 Mg Capsule, 300 MG PO TID Prescribed by: LESLIE PANCHAL MD on 06/06/22 0931 Doxycycline Hyclate (Doxycycline Hyclate) 100 Mg Tablet, 100 MG PO BID Prescribed by: YAMILETH CHANDLER on 05/14/22 0933 Sulfamethoxazole/Trimethoprim (Bactrim Ds Tablet) 1 Each Tablet, 1 EACH PO BID Prescribed by: MICHAEL BURT on 12/15/19 0848 Tramadol Hcl (Tramadol Hcl) 50 Mg Tablet, 50 MG PO Q4H PRN for PAIN Prescribed by: JOY CAMARA on 03/06/14 0225 Review of Systems Review of Systems Constitutional: see HPI, chills, fever EENTM: see HPI, nose congestion, throat pain Respiratory: see HPI, cough; No short of breath, No wheezing Cardiovascular: no symptoms reported; No chest pain Gastrointestinal: no symptoms reported; No abdominal pain, No constipation, No diarrhea, No loss of appetite, No nausea, No vomiting Genitourinary: no symptoms reported; No decreased output Musculoskeletal: see HPI (BODY ACHES) Skin: no symptoms reported; No rash Psychiatric/Neurological: See HPI, Headache Hematologic/Lymphatic: No Symptoms Reported Immunological/Allergic: no symptoms reported Past Umcvrda-Vicwkd-Ykbwef Hx Patient Social History Tobacco Use?: Yes Tobacco type used: Cigarettes Smoking Status: Current Everyday Smoker Substance use?: Yes Substance type: Methamphetamine Alcohol Use?: Yes Alcohol type: Beer, Hard Liquor Immunizations Up To Date Tetanus Booster (TDap): Less than 5yrs Past Medical History Surgeries: No Respiratory: No (DENIES BUT SMOKES 1-2 PPD) Cardiac: No Neurological: No Reproductive Disorders: No Sexually Transmitted Disease: No HIV/AIDS: No Genitourinary: No Gastrointestinal: Yes (HEPATITIS C--PARTIALLY TREATED) Hepatitis Musculoskeletal: No Endocrine: No HEENT: No Cancer: No Psychosocial: Yes (POLYSUBSTANCE ABUSE) Integumentary: Yes (history of skin abscess) Blood Disorders: No Family Medical History No Pertinent Family Hx SOCIAL HISTORY: -SMOKES 1-2 PPD -EOTH--HX OF ABUSE, USED TO DRINK 30 PACK/DAY OF BEER, CLAIMS NONE X 20 YEARS, PER PT ON 03/11/23 -DRUGS--HX OF IV METHAMPHETAMINE USE, CLAIMS NONE SINCE 07/2021, PER PT ON 03/11/23 ADDITIONAL PMH: -HEPATITIS C--PARTIALLY TREATED OF 07/14/23 Physical Exam Vital Signs Vital Signs - First Documented 03/11/23 20:20 Temp 36.7 Pulse 105 Resp 18 B/P (MAP) 97/74 (82) Capillary Refill : Height, Weight, BMI Height: 6'2" Weight: 160lbs. oz. 72.564808fp; 20.00 BMI Method:Stated General Appearance: No Apparent Distress, WD/WN, Thin, Other (REEKS OF CIGARETTES. DOES NOT APPEAR ACUTELY ILL OR TO BE IN ANY DISCOMFORT OR DISTRESS. PLAYING ON PHONE) HEENT: PERRL/EOMI, Normal ENT Inspection, Pharynx Normal, Other (POOR DENTITION) Neck: Full Range of Motion, Normal Inspection, Non Tender, Supple Respiratory: Normal Breath Sounds, No Accessory Muscle Use, No Respiratory Distress Cardiovascular: No Edema, No JVD, No Murmur, Tachycardia (110'S) Gastrointestinal: Normal Bowel Sounds, No Organomegaly, Non Tender, Soft Back: Normal Inspection, No CVA Tenderness, No Vertebral Tenderness Extremity: Normal Capillary Refill, Normal Inspection, No Pedal Edema Neurologic/Psychiatric: Alert, Oriented x3, No Motor/Sensory Deficits, Normal 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 ) Possible Source: Pulmonary Lactate Level 03/11/23 20:45: Lactic Acid Level 0.96 Time of Focused Exam: 21:45 Respiratory: Normal Breath Sounds, No Accessory Muscle Use, No Respiratory Distress Cardiovascular: Regular Rate, Rhythm, No Murmur Capillary Refill: Less Than 3 Seconds Skin: normal color, warm/dry Lactic Acid Level Laboratory Tests Test 03/11/23 20:45 Lactic Acid Level 0.96 MMOL/L (0.50-2.00) Within 3hrs of presentation: Admin fluids, Admin ABX, Blood cultures prior to ABX's, Focus exam, Lactate level Progress/Results/Core Measures Suspected Sepsis SIRS Temperature: Pulse: Respiratory Rate: Laboratory Tests 03/11/23 20:45: White Blood Count 4.8 Blood Pressure / Mean: 03/11/23 20:45: Lactic Acid Level 0.96 Laboratory Tests 03/11/23 20:45: Creatinine 1.38H, INR Comment 1.0, Platelet Count 171, Total Bilirubin 0.2 Results/Orders Lab Results Laboratory Tests Test 03/11/23 20:40 03/11/23 20:45 03/11/23 20:46 03/11/23 20:47 Range/Units Influenza Type A (RT-PCR) Not Detected Not Detecte Influenza Type B (RT-PCR) Not Detected Not Detecte SARS-CoV-2 RNA (RT-PCR) Not Detected Not Detecte White Blood Count 4.8 4.3-11.0 10^3/uL Red Blood Count 4.78 4.30-5.52 10^6/uL Hemoglobin 15.2 13.3-17.7 g/dL Hematocrit 44 40-54 % Mean Corpuscular Volume 93 80-99 fL Mean Corpuscular Hemoglobin 32 25-34 pg Mean Corpuscular Hemoglobin Concent 34 32-36 g/dL Red Cell Distribution Width 12.4 10.0-14.5 % Platelet Count 171 130-400 10^3/uL Mean Platelet Volume 9.8 9.0-12.2 fL Immature Granulocyte % (Auto) 0 % Neutrophils (%) (Auto) 52 42-75 % Lymphocytes (%) (Auto) 28 12-44 % Monocytes (%) (Auto) 19 H 0-12 % Eosinophils (%) (Auto) 1 0-10 % Basophils (%) (Auto) 0 0-10 % Neutrophils # (Auto) 2.5 1.8-7.8 10^3/uL Lymphocytes # (Auto) 1.4 1.0-4.0 10^3/uL Monocytes # (Auto) 0.9 0.0-1.0 10^3/uL Eosinophils # (Auto) 0.0 0.0-0.3 10^3/uL Basophils # (Auto) 0.0 0.0-0.1 10^3/uL Immature Granulocyte # (Auto) 0.0 0.0-0.1 10^3/uL Neutrophils % (Manual) 50 % Lymphocytes % (Manual) 29 % Monocytes % (Manual) 12 % Band Neutrophils 6 % Atypical Lymphocytes 1 % Reactive Lymphocytes 2 % Platelet Estimate ADEQUATE Blood Morphology Comment NORMAL Prothrombin Time 13.7 12.2-14.7 SEC INR Comment 1.0 0.8-1.4 Activated Partial Thromboplast Time 40 H 24-35 SEC Sodium Level 140 135-145 MMOL/L Potassium Level 3.8 3.6-5.0 MMOL/L Chloride Level 107 98-107 MMOL/L Carbon Dioxide Level 24 21-32 MMOL/L Anion Gap 9 5-14 MMOL/L Blood Urea Nitrogen 17 7-18 MG/DL Creatinine 1.38 H 0.60-1.30 MG/DL Estimat Glomerular Filtration Rate 62 BUN/Creatinine Ratio 12 Glucose Level 82 70-105 MG/DL Lactic Acid Level 0.96 0.50-2.00 MMOL/L Calcium Level 8.9 8.5-10.1 MG/DL Corrected Calcium 8.8 8.5-10.1 MG/DL Magnesium Level 2.1 1.6-2.4 MG/DL Total Bilirubin 0.2 0.1-1.0 MG/DL Aspartate Amino Transf (AST/SGOT) 17 5-34 U/L Alanine Aminotransferase (ALT/SGPT) 11 0-55 U/L Alkaline Phosphatase 76 40-136 U/L Total Protein 6.7 6.4-8.2 GM/DL Albumin 4.1 3.2-4.5 GM/DL Amylase Level 65 25-125 U/L Serum Alcohol < 10 <10 MG/DL Monoscreen NEGATIVE NEGATIVE Group A Streptococcus Screen NEGATIVE NEGATIVE Urine Color YELLOW Urine Clarity CLEAR Urine pH 5.5 5-9 Urine Specific [place] 1.020 1.016-1.022 Urine Protein NEGATIVE NEGATIVE Urine Glucose (UA) NEGATIVE NEGATIVE Urine Ketones NEGATIVE NEGATIVE Urine Nitrite NEGATIVE NEGATIVE Urine Bilirubin NEGATIVE NEGATIVE Urine Urobilinogen 0.2 < = 1.0 MG/DL Urine Leukocyte Esterase NEGATIVE NEGATIVE Urine RBC (Auto) NEGATIVE NEGATIVE Urine RBC NONE /HPF Urine WBC 0-2 /HPF Urine Squamous Epithelial Cells NONE /HPF Urine Crystals NONE /LPF Urine Bacteria TRACE /HPF Urine Casts PRESENT /LPF Urine Hyaline Casts 0-2 H /LPF Urine Mucus MODERATE H /LPF Urine Culture Indicated CULTURE PENDING Urine Opiates Screen NEGATIVE NEGATIVE Urine Oxycodone Screen NEGATIVE NEGATIVE Urine Methadone Screen NEGATIVE NEGATIVE Urine Propoxyphene Screen NEGATIVE NEGATIVE Urine Barbiturates Screen NEGATIVE NEGATIVE Ur Tricyclic Antidepressants Screen NEGATIVE NEGATIVE Urine Phencyclidine Screen NEGATIVE NEGATIVE Urine Amphetamines Screen NEGATIVE NEGATIVE Urine Methamphetamines Screen NEGATIVE NEGATIVE Urine Benzodiazepines Screen NEGATIVE NEGATIVE Urine Cocaine Screen NEGATIVE NEGATIVE Urine Cannabinoids Screen NEGATIVE NEGATIVE My Orders Orders - JUAN MEJÍA DO Covid 19 Inhouse Test (03/11/23 20:27) Amylase (03/11/23 20:27) Cbc With Automated Diff (03/11/23 20:27) Comprehensive Metabolic Panel (03/11/23 20:27) Blood Culture (03/11/23 20:27) Urinalysis (03/11/23 20:27) Urine Culture (03/11/23 20:27) Protime With Inr (03/11/23 20:27) Partial Thromboplastin Time (03/11/23 20:27) Chest 1 View, Ap/Pa Only (03/11/23 20:27) Ed Iv/Invasive Line Start (03/11/23 20:27) Ed Iv/Invasive Line Start (03/11/23 20:27) Vital Signs Adult Sepsis Patie Q15M (03/11/23 20:27) O2 (03/11/23 20:27) Remove Rings In Anticipation O (03/11/23 20:) Lactic Acid Analyzer (03/11/23 20:27) Lactated Ringers (Lr 1000 Ml Iv Solution (03/11/23 20:30) Influenza A And B By Pcr (03/11/23 20:27) Alcohol (03/11/23 20:36) Drug Screen Stat (Urine) (03/11/23 20:36) Magnesium (03/11/23 20:36) Monotest (03/11/23 20:40) Rapid Strep A Screen (03/11/23 20:40) Cefepime Injection (Maxipime Injection) (03/11/23 20:45) Throat Culture Strep A Confirm (03/11/23 20:46) Manual Differential (03/11/23 20:45) Azithromycin Tablet (Zithromax Tablet) (03/11/23 22:00) Medications Given in ED Current Medications Medications Dose Ordered Sig/Paco Route Start Time Stop Time Status Last Admin Dose Admin Azithromycin 500 mg ONCE ONCE PO 03/11/23 22:00 03/11/23 22:01 DC 03/11/23 22:02 500 MG Cefepime HCl 1000 mg/Sodium Chloride 50 ml @ 100 mls/hr ONCE ONCE IV 03/11/23 20:45 03/11/23 21:14 DC 03/11/23 21:00 100 MLS/HR Lactated Ringer's 1,000 ml @ 0 mls/hr Q0M ONCE IV 03/11/23 20:30 03/11/23 20:31 DC 03/11/23 21:00 0 MLS/HR Vital Signs/I&O 03/11/23 20:20 Temp 36.7 Pulse 105 Resp 18 B/P (MAP) 97/74 (82) Capillary Refill : Progress Note : Progress Note PLACED IN ISOLATION ROOM PPE WORN SEPSIS PROTOCOL INITIATED VITALS ON ARRIVAL: TEMP 36.7 = 98.0, HR 105, RR 18, BP 97/74, O2 SAT 95% ON ROOM AIR GIVEN: -IV FLUIDS -CEFEPIME LABS INCLUDING CBC, CMP, UA, LACTIC ACID, BLOOD CULTURES, STREP, MONO, COVID/FLU, WELL CXR ORDERED. LABS ARE UNREMARKABLE WITH NORMAL WBC, NORMAL ELECTROLYTES, NORMAL LACTIC ACID, COVID/FLU, STREP AND MONO ALL NEGATIVE. CXR READ BY RADIOLOGIST FINDINGS CONSISTENT WITH BRONCHITIS, WITHOUT FOCAL CONSOLIDATION AT DISMISSAL, HR 70'S, BP > 100 SYSTOLIC, O2 SAT 96% ON ROOM AIR NO COUGH NO DYSPNEA NO HYPOXIA NO FEVER DURING ER STAY DISCUSSED TEST RESULTS, ANTICIPATED COURSE, SYMPTOMATIC TREATMENT, MEDICATIONS, NEED FOR FOLLOW UP AND RETURN PRECAUTIONS REVIEWED PRIOR RECORDS--ALL ER VISITS, FOR VARIOUS COMPLAINTS. Diagnostic Imaging Comments CXR--PER RADIOLOGIST REPORT AT 2139 FINDINGS: Single view of the chest shows normal heart, pleura and diaphragms. There is prominent central lung markings with peribronchial cuffing. No consolidations are seen. There is no effusion or pneumothorax. IMPRESSION: Central reactive airway disease such as bronchitis. No consolidations are seen. There is no effusion or pneumothorax. There are a few background chronic parenchymal changes noted. Reviewed: Reviewed by Me Departure Impression Primary Impression: Bronchitis Additional Impression: Dehydration Disposition: 01 HOME, SELF-CARE Condition: Improved Departure-Patient Inst. Decision time for Depature: 21:45 Referrals: [facility] (PCP/Family) Primary Care Physician Patient Instructions: Bronchitis, Adult ED, Dehydration, Adult ED, Quitting Smoking ED Add. Discharge Instructions: LOTS OF CLEAR LIQUIDS--DRINK EQUAL AMOUNTS OF WATER AND GATORADE--DRINK ENOUGH SO YOU ARE URINATING EVERY 2-3 HOURS WHILE AWAKE YOU MAY TAKE TYLENOL 1 GRAM PLUS MOTRIN 800 MG 4 TIMES A DAY FOR PAIN OR FEVER OVER THE COUNTER MUCINEX DM FOR COUGH AND CONGESTION FOLLOW UP WITH [facility] IN 3-4 DAYS FOR FURTHER CARE--CALL IN THE MORNING TO SCHEDULE AN APPOINTMENT RETURN TO ER IF SYMPTOMS WORSEN All discharge instructions reviewed with patient and/or family. Voiced understanding. Scripts Cefdinir (Cefdinir) 300 Mg Capsule 300 MG PO BID, #20 CAP Prov: JUAN MEJÍA DO 03/11/23 Azithromycin (Zithromax) 500 Mg Tablet 500 MG PO DAILY for 5 Days, #5 TAB Prov: JUAN MEJÍA DO 03/11/23 JUAN MEJÍA DO Mar 11, 2023 20:47
[2023-03-11 20:53] LABS: BILIRUBIN,URINE NEGATIVE (NEGATIVE); CLARITY,URINE CLEAR; COLOR,URINE YELLOW; GLUCOSE, URINE (UA) NEGATIVE (NEGATIVE); KETONES,URINE NEGATIVE (NEGATIVE); LEUKOCYTE ESTERASE ,URINE NEGATIVE (NEGATIVE); NITRITE,URINE NEGATIVE (NEGATIVE); PH,URINE 5.5 (5-9); PROTEIN,URINE NEGATIVE (NEGATIVE)
[2023-03-11 21:02] LABS: BACTERIA,URINE TRACE /HPF; HYALINE CASTS, URINE 0-2 /LPF; WBC,URINE 0-2 /HPF
[2023-03-11 21:05] LABS: AMPHETAMINE SCREEN, URINE NEGATIVE (NEGATIVE); BARBITURATE SCREEN URINE NEGATIVE (NEGATIVE); BENZODIAZEPINES SCREEN URINE NEGATIVE (NEGATIVE); CANNABINOID SCREEN, URINE NEGATIVE (NEGATIVE); COCAINE SCREEN URINE NEGATIVE (NEGATIVE); METHADONE STAT NEGATIVE (NEGATIVE); OPIATE SCREEN URINE NEGATIVE (NEGATIVE); OXYCODONE STAT NEGATIVE (NEGATIVE); PROPOXYPHENE STAT NEGATIVE (NEGATIVE); TRICYCLIC ANTIDEPRESSANTS SCRE NEGATIVE (NEGATIVE)
[2023-03-11 21:15] LABS: BASOPHILS % (AUTO) 0 % (0-10); EOSINOPHILS % (AUTO) 1 % (0-10); HEMATOCRIT 44 % (40-54); HEMOGLOBIN 15.2 g/dL (13.3-17.7); LYMPHOCYTES # (AUTO) 1.4 10^3/uL (1.0-4.0); LYMPHOCYTES % (AUTO) 28 % (12-44); MEAN CORPUSCULAR HEMOGLOBIN 32 pg (25-34); MEAN CORPUSCULAR HGB CONC 34 g/dL (32-36); MEAN CORPUSCULAR VOLUME 93 fL (80-99); MEAN PLATELET VOLUME 9.8 fL (9.0-12.2); MONOCYTES # (AUTO) 0.9 10^3/uL (0.0-1.0); MONOCYTES % (AUTO) 19 % (0-12); NEUTROPHILS # (AUTO) 2.5 10^3/uL (1.8-7.8); NEUTROPHILS % (AUTO) 52 % (42-75); PLATELET COUNT 171 10^3/uL (130-400); WHITE BLOOD COUNT 4.8 10^3/uL (4.3-11.0)
--- NOTE | 2023-03-11 21:27 | Diagnostic Imaging Report ---
INDICATION: Fever COMPARISONS: 05/14/2022 FINDINGS: Single view of the chest shows normal heart, pleura and diaphragms. There is prominent central lung markings with peribronchial cuffing. No consolidations are seen. There is no effusion or pneumothorax. IMPRESSION: Central reactive airway disease such as bronchitis. No consolidations are seen. There is no effusion or pneumothorax. There are a few background chronic parenchymal changes noted. Dictated by: Dictated on workstation # [id number]
[2023-03-11 21:28] LABS: ALANINE AMINOTRANSFERASE 11 U/L (0-55); ALBUMIN 4.1 GM/DL (3.2-4.5); ALKALINE PHOSPHATASE 76 U/L (40-136); AMYLASE 65 U/L (25-125); BILIRUBIN,TOTAL 0.2 MG/DL (0.1-1.0); BUN/CREATININE RATIO 12; CALCIUM 8.9 MG/DL (8.5-10.1); CARBON DIOXIDE 24 MMOL/L (21-32); CHLORIDE 107 MMOL/L (98-107); CREATININE SERUM 1.38 MG/DL (0.60-1.30); GFR ESTIMATED 62; GLUCOSE 82 MG/DL (70-105); MAGNESIUM 2.1 MG/DL (1.6-2.4); POTASSIUM 3.8 MMOL/L (3.6-5.0); PROTHROMBIN TIME PATIENT 13.7 SEC (12.2-14.7); SODIUM 140 MMOL/L (135-145); TOTAL PROTEIN 6.7 GM/DL (6.4-8.2)
[2023-03-11 21:33] LABS: ATYPICAL LYMPHOCYTES 1 %; BAND NEUTROPHILS 6 %; LYMPHOCYTES % (MANUAL) 29 %; MONOCYTES % (MANUAL) 12 %; NEUTROPHILS % (MANUAL) 50 %; REACTIVE LYMPHOCYTES 2 %
[2023-03-11 21:34] LABS: PLATELET ESTIMATE ADEQUATE; RBC MORPH NORMAL
[2023-03-11] MEDS ORDERED: CEFD300C3 PO (21:49)
[2023-03-11] MEDS ORDERED: AZIT500T PO (21:49)
[2023-03-11] MEDS ORDERED: AZITHROMYCIN 250 MG TAB (ZITHROMAX) PO ONE (22:00)
== END 2023-03-11 22:13 | disposition home or self-care (01) ==
LOC: EDUNIT# 20:14 → ER 20:17
DX: J40 Bronchitis, not specified as acute or chronic (principal); E86.0 Dehydration; F17.210 Nicotine dependence, cigarettes, uncomplicated; Z20.822 Contact with and (suspected) exposure to COVID-19
CPT/HCPCS: 71045; 80053; 80306; 81000; 82150; 83605; 83735; 85007; 85027; 85610; 85730; 86308; 87040; 87088; 87430; 87636; 99284; G0480; 36415; 80320